=== PATIENT | female | born 1980 | race Caucasian/White ===

== ENCOUNTER 2022-08-11 16:30 | Outpatient (REF) | payer MEDICAID, SELFPAY | END 2022-08-11 16:31 | disposition home or self-care (01) | LOC: LAB 16:30 | PROVIDERS: PCP Family Medicine; Visit Provider Obstetrics & Gynecology | DX: N92.0 Excessive and frequent menstruation with regular cycle (principal) | CPT/HCPCS: 88305 ==

== ENCOUNTER 2022-08-26 14:58 | Outpatient (OUT) | payer MEDICAID, SELFPAY | END 2022-08-26 14:59 | disposition home or self-care (01) | LOC: PST 15:03 | PROVIDERS: PCP Family Medicine | DX: Z01.818 Encounter for other preprocedural examination (principal); N92.1 Excessive and frequent menstruation with irregular cycle; N93.9 Abnormal uterine and vaginal bleeding, unspecified; R10.2 Pelvic and perineal pain ==

== ENCOUNTER 2022-09-04 06:17 | Day surgery (SDC) | payer MEDICAID, SELFPAY ==
[2022-08-26 12:26] VITALS: PULSE 83; TEMP 36.4; O2SAT 97; BMI 36.4
[2022-09-04] VITALS (11 sets, daily range): BP systolic 94–127; BP diastolic 60–83; PULSE 53–74; RESP 12–21; TEMP 36.2–36.5; O2SAT 93–97; BMI 36.4
[2022-09-04 06:26] LABS: Basophils Percent Auto 0.3 % (0.2-2.0); Eosinophils Absolute Auto 0.2 10^3/uL (0.0-0.7); Eosinophils Percent Auto 2.9 % (0.9-7.0); Hematocrit 38.7 % (36.0-48.0); Hemoglobin 12.8 g/dL (12.0-16.0); Immature Granulocytes Abs Auto 0.02 10^3/uL (0.00-0.03); Immature Granulocytes Pct Auto 0.3 % (0.0-0.5); Lymphocytes Absolute Auto 1.8 10^3/uL (1.2-3.8); Lymphocytes Percent Auto 25.8 % (20.5-60.0); Mean Corpuscular HGB Conc 33.1 g/dL (29.9-35.2); Mean Corpuscular Hemoglobin 28.6 pg (26.7-34.0); Mean Corpuscular Volume 86.4 fL (81.0-99.0); Mean Platelet Volume 8.6 fL (9.5-13.5); Monocytes Absolute Auto 0.5 10^3/uL (0.3-0.8); Monocytes Percent Auto 6.7 % (1.7-12.0); Neutrophils Absolute Auto 4.5 10^3/uL (1.4-6.5); Platelet Count 254 10^3/uL (150-450); Red Blood Count 4.48 10^6/uL (4.20-5.40); Red Cell Distribution Width 12.9 % (11.0-15.0)
[2022-09-04 06:46] LABS: HCG Quantitative <1 mIU/mL
[2022-09-04] MEDS: LACTATED RINGER'S SOLUTION 1,000 ML 50 ML IV (07:02)
--- NOTE | 2022-09-04 12:48 | PM.ONB ---
Brief Operative Note Date of procedure: 09/04/22 Pre-op diagnosis: menorrhagia Post-op diagnosis: same Procedure: The patient was taken back to the OR where she was prepped and draped in the normal sterile fashion after being placed in the dorsal lithotomy position, after being placed under general anesthesia without difficulty. The anterior lip was grasped with a single tooth tenaculum. The patient was then gently sounds. The patient was gently sounded using Hegar dilators and the hysteroscope was passed through the cervix into the uterus where both ostia were seen. No gross evidence of polyps, fibroids or malignancy. A weighted speculum was placed in the patient?s vagina, the anterior tip of the cervix was identified and grasped with a single tooth tenaculum. The patient was gently sounded to roughly 10 cm. The cervical length was noted to be 5 cm. The Martina ablation apparatus was set to approximately 5 in length. This was placed in through the cervix and into the uterus. After the seal was tested, at that time the total ablation of 120 seconds was performed with the Martina without difficulty. All instruments were removed from the vagina. Anesthesia: JP Surgeon: Geraldo Chisholm Estimated blood loss (mL): 5 Pathology: none sent Condition: stable Disposition: PACU
--- NOTE | 2022-09-07 13:43 | PC.NURSE ---
Pt straight cathed per Arabella MOORE. No urine noted.
== END 2022-09-04 09:40 | disposition home or self-care (01) ==
PROVIDERS: PCP Family Medicine; Visit Provider Obstetrics & Gynecology
PROC: (CPT 00952; principal; 2022-09-04 07:30)
DX: N92.1 Excessive and frequent menstruation with irregular cycle (principal); N93.9 Abnormal uterine and vaginal bleeding, unspecified; R10.2 Pelvic and perineal pain; Z79.84 Long term (current) use of oral hypoglycemic drugs; Z98.51 Tubal ligation status
CPT/HCPCS: 00952; 58563; 36415; 84702; 85025; J2704

== ENCOUNTER 2022-12-17 19:54 | Outpatient (OUT) | payer MEDICAID, SELFPAY ==
--- NOTE | 2022-12-17 20:04 | US_ITS ---
The [address] [address] Patient Name: ODALIS MC MRN: [id number] date: 1980 Sex: F Assigned Patient Location: Current Patient Location: Accession/Order Number: [id number] Exam Date: 12/17/2022 20:10 Report Date: 12/18/2022 07:36 At the request of: LIZZ CHRISTIANSON Procedure: US pelvis w/ transvaginal EXAMINATION: US pelvis w/ transvaginal HISTORY: PELVIC PAIN IN FEMALE R10.2 COMPARISON: No relevant comparison available. FINDINGS: The uterus is normal in size, contour and myometrial echotexture measuring 8.5 x 3.6 x 4.3 cm, anteverted. No focal myometrial mass. The endometrium measures 5.3 mm, normal. The right ovary is normal measuring 1.0 x 1.4 x 1.2 cm. Normal color and Doppler flow. The left ovary measures 3.5 x 2.1 x 2.8 cm. Normal color Doppler flow. Area of anechoic echogenicity measuring 2.1 cm, a simple cyst is favored No free fluid US/US pelvis w/ transvaginal IMPRESSION: 2.1 cm left ovarian simple cyst Electronically authenticated by: LE JAIME Date: 12/18/2022 07:36
== END 2022-12-17 19:55 | disposition home or self-care (01) ==
LOC: US 19:55
PROVIDERS: PCP Family Medicine; Visit Provider Obstetrics & Gynecology
DX: R10.2 Pelvic and perineal pain (principal); N83.292 Other ovarian cyst, left side
CPT/HCPCS: 76830; 76856

== ENCOUNTER 2024-09-20 08:53 | Outpatient (OUT) | payer MEDICAID, SELFPAY ==
--- OUTSIDE RECORDS SUMMARY | 2007-11-28 14:00 | XMS_ITS | Continuity of Care Document ---
Author Organization [facility] Address [address] [place] [address] Phone Care Team Providers Care Wood Type Cutter Name Role Phone Jun Quiroz MD Unavailable Unavailable Medications Medication Instructions Dosage Effective Dates (start - stop) Status Comments Tamiflu 75 mg Cap Take one capsule by mouth every twelve hours - Active ROBITUSSIN A-C 100-10MG/5SYRUP Take two teaspoons every four hours - Active ALBUTEROL 90MCGAEROSOL 2 PUFFS Q 4 HRS PRN WHEEZING - Active Tylenol-Codeine #3 300 mg-30 mg Tab Take two tablets by mouth every four hours FOR PAIN - Active Methocarbamol 750 mg Tab 1 every 8 hrs as needed for muscle spasm - No Longer Active Vicodin 5 mg-500 mg Tab 1 before bed as needed for pain - No Longer Active Procedures Procedure Date Urgent Care Visit Advance Directives Directive Yes / No Effective Date File Name No Information Encounters Encounter Description Practice Location Reason(s) For Visit Diagnoses Date Provider Providers Copied on Encounter [facility], [address], [place], [place], [id number], [place] tel:[phone] [facility] back pain (chief complaint) SPRAIN/STRA IN LUMBAR Gabriella Barahona. [address], [place], [place], [id number], [place]. tel:[phone] Referring Provider: Aaron Merrill MD, [address], [place], [address]. tel:[phone] [facility], [address], [place], [place], [address], [place] tel:[phone] [facility] NB VIRAL INFXN,UNSPE CIFIED Benedicto Peres. [address], [place], [address], [place]. tel:[phone] Family History Family Member Type Diagnosis Age At Onset No Information Payers Payer name Insurance type Covered green party [id number] Social History Type Description Quantity Date Captured Comments Sex Female Smoking Status No Information Sexual Orientation Straight or heterosexual Vital Signs Date / Time: Height Weight BMI Pulse Rate Blood Pressure Temperature Respiratory Rate Body Surface Area Head Circumference Head Circ. Percentile Wt./Uche. Percentile BMI percentile Pulse Ox Inhaled Ox 6:14 PM 175.00 lbs 65 /min 110/82 mm[Hg] 98.30 F Chief Complaint And Reason For Visit From encounter dated '11/28/2007 18:00'. back pain (chief complaint) Reason For Referral Reason For Referral No Information History Of Present Illness Encounter Date Complaint History Of Prese nt Illness back pain Functional Status Date Functional Assessmen t No Information Instructions Date Instruction Additional Infor mation No Information Assessments Type Assessment Date No Information Patient Care Teams Name Effective Dates (start - stop) Status Members No Information
--- OUTSIDE RECORDS SUMMARY | 2024-09-20 08:55 | XMS_ITS | Clinical Summary ---
Author Organization [facility] Address [id number] [address] [place] [address] Care Team Providers Care Server Support Technician Name Role Phone Cosme Zhao MD Primary Care Provider [phone] Allergies Active Allergy Reactions Criticality Noted Date Comments Erythromycin 04/19/2019 Grass Pollen 09/06/2023 Other Reaction(s): Itching Comments: (grass clippings) Penicillins 04/19/2019 Medications ALPRAZolam (XANAX) 0.25 mg tablet Take 1 tablet (0.25 mg total) by mouth nightly as needed for anxiety. Active busPIRone (BUSPAR) 10 mg tabletIndicatio ns:generalized anxiety disorder Take 1 tablet (10 mg total) by mouth 2 (two) times a day as needed Indications: repeated episodes of anxiety. Active WELLBUTRIN XL 300 mg 24 hr tablet Take 1 tablet (300 mg total) by mouth every morning. 05/11/2024 Active Active Problems Problem Noted Date Diagnosed Date Insulin resistance 08/25/2022 Perceived hearing changes 09/20/2019 Overview (11/29/2022): replacing diagnoses that were inactivated after the 11/29 regulatory import Family History Medical History Relation Name Comments Breast cancer Neg Hx Social History Tobacco Use Types Packs/Day Years Used Date Smoking Tobacco: Never Smokeless Tobacco: Never Alcohol Use Standard Drinks/Week Comments Not Currently 0 (1 standard drink = 0.6 oz pur e alcohol) Childcare Answer Date Recorded Childcare Unknown 08/10/2018 Employment Answer Date Recorded Employment Unknown 08/10/2018 Purpose - Life Answer Date Recorded Purpose and direction in life Unknown Comments No Sex and Gender Information Value Date Recorded Sex Assigned at Not on file Legal Sex Female 12:09 PM EDT Gender Identity Not on file Sexual Orientation Not on file Last Filed Vital Signs Vital Sign Reading Time Taken Comments Blood Pressure 122/80 06/14/2024 3:18 PM EDT Pulse 79 06/14/2024 3:18 PM EDT Temperature 36.9 C (98.5 F) 09/17/2019 2:59 PM EDT Respiratory Rate 13 09/17/2019 2:59 PM EDT Oxygen Saturation 96% 06/14/2024 3:18 PM EDT Inhaled Oxygen Concentration - - Weight 92.1 kg (203 lb) 06/14/2024 3:18 PM EDT Height 162.6 cm (5' 4 ) 06/14/2024 3:18 PM EDT Body Mass Index 34.84 06/14/2024 3:18 PM EDT Plan of Treatment Health Maintenance Due Date Last Done Comments Depression Screening 1990 Adult BMI Follow Up Plan 1996 DTaP,Tdap and Td Vaccines (2 - Td or Tdap) 09/01/2023 08/31/2013 COVID-19 Vaccine ( season) 2023, 04/24/2020 Influenza Vaccine 10/30/2024 Pap Smear 04/22/2025 04/22/2022 Adult BMI Screening 06/14/2025 06/14/2024 Tobacco Screening 06/14/2025 06/14/2024 Medical Devices Not on file Insurance [employer] Care Teams Server Support Technician Relationship Specialty Start Date End Date Cosme Zhao MD PCP - General Family Medicine 11/01/18
--- OUTSIDE RECORDS SUMMARY | 2024-09-20 08:55 | XMS_ITS | Encounter Summary ---
Author Organization [facility] Address [address] [place] [address] Care Team Providers Care Coach Cleaner Name Role Phone Junior Mata MD Unavailable [phone] Ivelisse Germain Unavailable Unavailable Encounter Details Date Type Department Care Team (Late st Contact Info) Description 12/18/2022 Clinisync Result Encounter [facility] External Department Unsolicited Lizz Chisholm, DO [address] [place] [address] Social History Tobacco Use Types Packs/Day Years Used Date Smoking Tobacco: Never Smokeless Tobacco: Never Alcohol Use Standard Drinks/Week Comments Never 0 (1 standard drink = 0.6 oz pur e alcohol) Comments No Sex and Gender Information Value Date Recorded Sex Assigned at Not on file Legal Sex Female 11:49 PM EDT Gender Identity Not on file Sexual Orientation Not on file documented as of this encounter Plan of Treatment Not on file documented as of this encounter Procedures Procedure Name Priority Date/Time Associated Diagnosis Comments US PELVIS W/ TRANSVAGINAL 12/18/2022 7:36 AM EDT documented in this encounter Results * US PELVIS W/ TRANSVAGINAL (12/18/2022 7:36 AM EDT) Anatomical Region Laterality Modality Other 12/18/2022 7:36 AM EDT Narrative 12/18/2022 7:36 AM EDT The [address] [address] Ultrasound Report Signed Patient: ODALIS LAMAS MR#: [id number] : 1980 Acct:[id number] Age/Sex: 42 / F ADM Date: 12/17/22 Loc: US Attending Dr: Lizz Chisholm D.O. Ordering Physician: Lizz Chisholm D.O. Date of Service: 12/17/22 Procedure(s): US pelvis w/ transvaginal Accession Number(s): [id number] cc: Lizz Chisholm D.O.; KEERTHI STOCKTON The [place] [id number] Patient Name: ODALIS LAMAS MRN: [id number] date: 1980 Sex: F Assigned Patient Location: US Current Patient Location: Accession/Order Number: [id number] Exam Date: 12/17/2022 20:10 Report Date: 12/18/2022 07:36 At the request of: LIZZ CHISHOLM Procedure: US pelvis w/ transvaginal EXAMINATION: US pelvis w/ transvaginal HISTORY: PELVIC PAIN IN FEMALE R10.2 COMPARISON: No relevant comparison available. FINDINGS: The uterus is normal in size, contour and myometrial echotexture measuring 8.5 x 3.6 x 4.3 cm, anteverted. No focal myometrial mass. The endometrium measures 5.3 mm, normal. The right ovary is normal measuring 1.0 x 1.4 x 1.2 cm. Normal color and Doppler flow. The left ovary measures 3.5 x 2.1 x 2.8 cm. Normal color Doppler flow. Area of anechoic echogenicity measuring 2.1 cm, a simple cyst is favored No free fluid US/US pelvis w/ transvaginal IMPRESSION: 2.1 cm left ovarian simple cyst Electronically authenticated by: LE JAIME Date: 12/18/2022 07:36 Dictated By: Le Jaime M.D. Signed By: 12/18/2238 DD/ TD/TT: Vegetable Packer: Procedure Note Radiology, Radiologist, MD - 12/18/2022 [place] [address] Ultrasound Report Signed Patient: ODALIS LAMAS MMR#: [id number] : 1980Acct:[id number] Age/Sex: 42 / FADM Date: 12/17/22 Loc: US Attending Dr: Lizz Chisholm D.O. Ordering Physician: Lizz Chisholm D.O. Date of Service: 12/17/22 Procedure(s): US pelvis w/ transvaginal Accession Number(s): [id number] cc: Lizz Chisholm D.O.; KEERTHI STOCKTON [place] [address] Patient Name: ODALIS LAMAS MRN: [id number] date: 1980 Sex: F Assigned Patient Location: US Current Patient Location: Accession/Order Number: [id number] Exam Date: 12/17/2022 20:10 Report Date: 12/18/2022 07:36 At the request of: LIZZ CHISHOLM Procedure: US pelvis w/ transvaginal EXAMINATION: US pelvis w/ transvaginal HISTORY: PELVIC PAIN IN FEMALE R10.2 COMPARISON: No relevant comparison available. FINDINGS: The uterus is normal in size, contour and myometrial echotexture measuring8.5 x 3.6 x 4.3 cm, anteverted. No focal myometrial mass. The endometrium measures 5.3 mm, normal. The right ovary is normal measuring 1.0 x 1.4 x 1.2 cm. Normal color and Doppler flow. The left ovary measures 3.5 x 2.1 x 2.8 cm. Normal color Doppler flow.Area of anechoic echogenicity measuring 2.1 cm, a simple cyst is favored No free fluid US/US pelvis w/ transvaginal IMPRESSION: 2.1 cm left ovarian simple cyst Electronically authenticated by: LE JAIME Date: 12/18/2022 07:36 Dictated By: Le Jaime M.D. Signed By:12/18/2238 DD/ TD/TT: Vegetable Packer: us Lizz Chisholm DO [facility] Final Result documented in this encounter Visit Diagnoses Not on filedocumented in this encounter Care Teams Coach Cleaner Relationship Specialty Start Date End Date Junior Mata MD [address] [facility] [address] [place] [address] PCP - [facility] [place] BUSINESS OBJECTS REPORT DEVELOPER 05/31/23 08/29/23 Ivelisse Germain PCP - [facility] [place] BUSINESS OBJECTS REPORT DEVELOPER 08/30/23 documented as of this encounter
--- OUTSIDE RECORDS SUMMARY | 2024-09-20 08:55 | XMS_ITS | Clinical Summary ---
Author Organization [facility] Address [address] [place] [address] Care Team Providers Care Test Analyst Name Role Phone Ivelisse Germain Unavailable Unavailable Allergies Active Allergy Reactions Criticality Noted Date Comments Erythromycin GI intolerance 08/11/2022 Other Reaction(s): Vomiting Grass Pollen(K-O-R-T-Swt Jamse) 09/06/2023 Other Reaction(s): Itching Comments: (grass clippings) Penicillins Rash Low 08/11/2022 Other Reaction(s): Vomiting Medications ALPRAZolam (Xanax) 0.25 MG tablet Take 0.25 mg by mouth 3 (three) times a day as needed. Active busPIRone (Buspar) 10 MG tablet Take 10 mg by mouth in the morning and 10 mg before bedtime. 07/26/2023 Active cetirizine (ZyrTEC) 10 MG tablet Take 10 mg by mouth Daily Active metFORMIN XR (Glucophage-XR) 500 MG 24 hr tabletIndicatio ns:Insulin resistance Take 1 tablet (500 mg) by mouth in the evening. Take with meals Do not crush, chew, or split. 30 tablet 11 08/09/2023 Active phentermine (Adipex-P) 37.5 MG tabletIndicatio ns:Encounter for weight management,Insu terell resistance Take 1 tablet (37.5 mg) by mouth in the morning. Take before meals. 30 tablet 08/09/2023 Active phentermine (Adipex-P) 37.5 MG tabletIndicatio ns:Encounter for weight management Take 1 tablet (37.5 mg) by mouth in the morning. Take before meals. 30 tablet 09/06/2023 Active escitalopram (Lexapro) 5 MG tablet Take 5 mg by mouth in the morning. 09/17/2023 Active phentermine (Adipex-P) 37.5 MG tabletIndicatio ns:Encounter for weight management Take 1 tablet (37.5 mg) by mouth in the morning. Take before meals. 90 tablet 10/13/2023 Active Active Problems Problem Noted Date Diagnosed Date Insulin resistance 08/25/2022 Menorrhagia with regular cycle 08/25/2022 Menstrual cycle problem 08/25/2022 Unable to lose weight 08/25/2022 Subjective hearing change 09/20/2019 Social History Tobacco Use Types Packs/Day Years [...] Sign Reading Time Taken Comments Blood Pressure 112/78 10/13/2023 10:06 AM EDT Pulse - - Temperature - - Respiratory Rate - - Oxygen Saturation - - Inhaled Oxygen Concentration - - Weight 93.9 kg (207 lb) 10/13/2023 10:06 AM EDT Height 162.6 cm (5' 4 ) 10/13/2023 10:06 AM EDT Body Mass Index 35.53 10/13/2023 10:06 AM EDT Plan of Treatment Health Maintenance Due Date Last Done Comments CT Colonography 1980 Colonoscopy 1980 Colorectal Cancer Screening 1980 FIT-DNA 1980 FIT 1980 FOBT 1980 Sigmoidoscopy 1980 Mammogram 06/11/2023 06/10/2022, 05/21/2020 Influenza Vaccine (#1) 2024 Cervical Cancer Screening 04/22/2027 HPV/Cotest 04/22/2027 Pap Smear 04/22/2027 04/22/2022 Procedures Procedure Name Priority Date/Time Associated Diagnosis Comments BI MAMMOGRAM SCREENING TOMOSYNTHESIS BILATERAL Routine 06/10/2022 Encounter for other screening for malignant neoplasm of breast Metabolic syndrome Encounter for gynecological examination (general) (routine) without abnormal findings PAP SMEAR Routine 04/22/2022 12:00 AM EST from Last 3 Months or Most Recently Relevant to Health Maintenance Results * Bilateral screening mammogram with tomosynthesis (06/10/2022) Anatomical Region Laterality Modality Breast Bilateral Mammography Narrative 06/10/2022 12:00 AM EDT PERFORMED AT [facility] LOCATION:[address] Patient: ADAMS Wing Exam Date: 06/10/2022 : 1980 Gender:F Ordering : DR LIZZ CHISHOLM . Admission #: [id number] Family : ANITHA SINGH . Order #: [id number] CLICK HERE TO VIEW EXAM RADIOLOGY REPORT PROCEDURE: MAMMOGRAM SCREENING 3D BILATERAL CAD COMPARISON: MG MAMM SCREEN 3D WILFRIDO CAD 05/21/2020. INDICATIONS: Screening mammography Calculator Name NCI Breast Cancer Risk Assessment Tool 5 Year Breast Cancer Risk 0.90% Lifetime Breast Cancer Risk 11.80% Personal Breast Cancer No Personal Ovarian Cancer No Treatments None Family Cancers None LOCATION: [facility] BREAST COMPOSITION: Scattered areas fibroglandular density. FINDINGS: DIAGNOSTIC CATEGORY 2--BENIGN FINDING: RIGHT BREAST: No significant suspicious finding. Scattered benign-appearing lymph nodes are present. No significant change has occurred. LEFT BREAST: No significant suspicious finding. No significant change has occurred. RECOMMENDATIONS: ROUTINE MAMMOGRAM AND CLINICAL EVALUATION IN 12 MONTHS. PLEASE NOTE: A NORMAL MAMMOGRAM DOES NOT EXCLUDE THE POSSIBILITY OF BREAST CANCER. A CLINICALLY SUSPICIOUS PALPABLE LUMP SHOULD BE BIOPSIED. Dictated by: Mike Lino M.D. on 06/10/2022 at 14:09 Approved by: Mike Lino M.D. on 06/10/2022 at 14:14 Procedure Note CONVERSION, GENERIC - 09/04/2022 PERFORMED AT [facility] LOCATION:[address] Patient: ADAMS Wing Exam Date: 06/10/2022 : 1980 Gender:F Ordering : DR LIZZ CHISHOLM . Admission #: [id number] Family : ANITHA SINGH . Order #: [id number] CLICK HERE TO VIEW EXAM RADIOLOGY REPORT PROCEDURE: MAMMOGRAM SCREENING 3D BILATERAL CAD COMPARISON: MG MAMM SCREEN 3D WILFRIDO CAD 05/21/2020. INDICATIONS: Screening mammography Calculator Name NCI Breast Cancer Risk Assessment Tool 5 Year Breast Cancer Risk 0.90% Lifetime Breast Cancer Risk 11.80% Personal Breast Cancer No Personal Ovarian Cancer No Treatments None Family Cancers None LOCATION: [facility] BREAST COMPOSITION: Scattered areas fibroglandular density. FINDINGS: DIAGNOSTIC CATEGORY 2--BENIGN FINDING: RIGHT BREAST: No significant suspicious finding. Scatteredbenign-appearing lymph nodes are present. No significant change has occurred. LEFT BREAST: No significant suspicious finding. No significant changehas occurred. RECOMMENDATIONS: ROUTINE MAMMOGRAM AND CLINICAL EVALUATION IN 12 MONTHS. PLEASE NOTE: A NORMAL MAMMOGRAM DOES NOT EXCLUDE THE POSSIBILITY OFBREAST CANCER. A CLINICALLY SUSPICIOUS PALPABLE LUMP SHOULD BE BIOPSIED. Dictated by: Mike Lino M.D. on 06/10/2022 at 14:09 Approved by: Mike Lino M.D. on 06/10/2022 at 14:14 Lizz Chisholm DO IMG BI PROCEDURES Final Result * Pap Smear (04/22/2022 12:00 AM EST) Swab Cervical swab / Unknown [facility] Provider LAB CYTOLOGY ORDERABLES F inal Result EXTERNAL LAB from Last 3 Months or Most Recently Relevant to Health Maintenance Insurance [facility] MEDICAID [place] Care Teams Test Analyst Relationship Specialty Start Date End Date Ivelisse Germain PCP - [facility] METAL ROOFER 08/30/23
--- OUTSIDE RECORDS SUMMARY | 2024-09-20 08:55 | XMS_ITS | Encounter Summary ---
Author Organization [facility] Address [address] [place] [address] Care Team Providers Care Clinical Nursing Assistant Name Role Phone Junior Mata MD Unavailable [phone] Ivelisse Germain Unavailable Unavailable Encounter Details Date Type Department Care Team (Late st Contact Info) Description 09/17/2022 Abstract [facility] [address] [place] [address] Slime Mcmahon PA [address] [place], [place] [id number] Social History Tobacco Use Types Packs/Day Years [...] on file documented as of this encounter Visit Diagnoses Not on filedocumented in this encounter Care Teams Clinical Nursing Assistant Relationship Specialty Start Date End Date Junior Mata MD [address] [place], [place] [id number] PCP - [facility] [place] INVESTMENT CONSULTANT 05/31/23 08/29/23 Ivelisse Germain PCP - [facility] [place] INVESTMENT CONSULTANT 08/30/23 documented as of this encounter
--- OUTSIDE RECORDS SUMMARY | 2024-09-20 08:55 | XMS_ITS | Encounter Summary ---
Author Organization [facility] Address [address] [place] [address] Care Team Providers Care Quality Control Checker Name Role Phone Junior Mata MD Unavailable [phone] Ivelisse Germain Unavailable Unavailable Encounter Details Date Type Department Care Team (Late st Contact Info) Description 09/10/2022 Abstract [facility] OB [address] [place] [address] Geraldo Chisholm [address] [place], [place] [id number] Social History Tobacco Use Types Packs/Day Years [...] on filedocumented in this encounter Care Teams Quality Control Checker Relationship Specialty Start Date End Date Junior Mata MD [address] [facility] [address] [place], [place] [id number] PCP - [facility] [place] ORANGE PICKING SUPERVISOR 05/31/23 08/29/23 Ivelisse Germain PCP - [facility] [place] ORANGE PICKING SUPERVISOR 08/30/23 documented as of this encounter
--- NOTE | 2024-09-20 09:01 | MM_ITS ---
Patient Name: ODALIS MC MR#: [id number] : 1980 Exam Date: 09/20/2024 Ordering Doctor: KASEY STEVENSON . RADIOLOGY REPORT PROCEDURE: MM TOMOSYNTHESIS SCREENING BI COMPARISON: MG MAMM SCREEN 3D WILFRIDO CAD, 06/10/2022. MG MAMM SCREEN 3D [place]ILFR[place]O CAD, 05/21/2020. INDICATIONS: Screening Calculator Name NCI Breast Cancer Risk Assessment Tool 5 Year Breast Cancer Risk 1.00% Lifetime Breast Cancer Risk 11.60% Personal Breast Cancer No Personal Ovarian Cancer No Treatments None Family Cancers None LOCATION: [facility] BREAST COMPOSITION: There are scattered areas of fibroglandular density. FINDINGS: RIGHT BREAST: No significant suspicious finding. LEFT BREAST: No significant suspicious finding. DIAGNOSTIC CATEGORY 1--NEGATIVE. RECOMMENDATIONS: ROUTINE MAMMOGRAM AND CLINICAL EVALUATION IN 12 MONTHS. PLEASE NOTE: A NORMAL MAMMOGRAM DOES NOT EXCLUDE THE POSSIBILITY OF BREAST CANCER. A CLINICALLY SUSPICIOUS PALPABLE LUMP SHOULD BE BIOPSIED. Dictated by: Lex Oreilly MD on 09/20/2024 at 12:57 Approved by: Lex Oreilly MD on 09/20/2024 at 13:12
--- OUTSIDE RECORDS SUMMARY | 2024-09-20 09:15 | XMS_ITS | CCD ---
Author Organization [facility] Care Team Providers Care Monitoring Specialist Name Role Phone SAMMY ., DR ZAMUDIO Consulting Unavailable SAMMY ., DR ZAMUDIO Admitting Unavailable SAMMY ., DR ZAMUDIO Attending Unavailable ZIEBER, DR MIKE Woodruff Consulting Unavailable SAMMY ., DR ZAMUDIO Consulting Unavailable SAMMY ., DR ZAMUDIO Admitting Unavailable SAMMY ., DR ZAMUDIO Attending Unavailable FRANCISCO ., SLIME Attending Unavailable FRANCISCO ., SLIME Consulting Unavailable FRANCISCO ., SLIME Admitting Unavailable SAMMY ., DR ZAMUDIO Consulting Unavailable SAMMY ., DR ZAMUDIO Admitting Unavailable SAMMY ., DR ZAMUDIO Attending Unavailable ZIEBER, DR MIKE Woodruff Consulting Unavailable REQUEST, DR TINOCO LISTED Consulting Unavaila ble DAPHNIE THOMAS Referring Unavailable KEERTHI ZHAO Primary Care Unavailable LIZZ CHRISTIANSON Attending Unavailable SAMMY, LIZZ Attending Unavailable FRANCISCO, SLIME Attending Unavailable Pavel GUARDADO, Keerthi Woodruff Primary Care Provider Keerthi Zhao MD Primary Care Provider Kiara Zhao MD, Keerthi Woodruff Primary Care Provider DAPHNIE THOMAS Attending Unavailable KEERTHI ZHAO Referring Unavailable KEERTHI ZHAO Primary Care Unavailable DAPHNIE THOMAS Attending Unavailable KEERTHI ZHAO Referring Unavailable KEERTHI ZHAO Primary Care Unavailable Rosemary, RESTORATION TECHNICIAN Angle L Attending Unavailable Rosemary, RESTORATION TECHNICIAN Angle L Attending Unavailable Rosemary, RESTORATION TECHNICIAN Angle L Attending Unavailable Rosemary, RESTORATION TECHNICIAN Angle L Attending Unavailable Allergies Allergy Classification Reported Allergen(s) Allergy Type Date of Onset Reaction(s) Facility (1 source) Erythromycin Drug Allergy 4 [facility] Repository (3 sources) Penicillins; Translations: [PENICILLINS] Drug allergy (disorder) 4 [facility] Repository (14 sources) Erythromycin; Translations: [[facility]THROMYCIN] [facility] Penicillins Propensity to adverse reactions to drug 0 [facility] [employer] [facility] (6 sources) Grass pollen; Translations: [GRASS POLLEN] Propensity to adverse reactions to drug 4 [facility] (3 sources) Penicillins Propensity to adverse reactions to drug 0 [facility] [employer] [facility] (1 source) Penicillin G Benzathine; Translations: [penicillin G benzathine] Propensity to adverse reactions (disorder) [facility] Repository Medications Current Medications Medication Drug Class(es) Dates Sig (Normalized) Sig (Original) ALPRAZolam 0.25 mg oral tablet (11 sources) Benzodiazepine take 1 tablet by mouth once daily as needed for anxiety ALPRAZolam (XANAX) 0.25 mg tablet Take 1 tablet (0.25 mg total) by mouth nightly as needed for anxiety. Active 24 hr buPROPion hydrochloride 300 mg extended release oral tablet (2 sources) Aminoketone Start: 05-11-2024 take 1 tablet by mouth once daily in the morning WELLBUTRIN XL 300 mg 24 hr tablet Take 1 tablet (300 mg total) by mouth every morning. 05/11/2024 Active busPIRone hydrochloride 10 mg oral tablet (8 sources) take 1 tablet by mouth twice daily as needed for anxiety busPIRone (BUSPAR) 10 mg tablet Indications: generalized anxiety disorder Take 1 tablet (10 mg total) by mouth 2 (two) times a day as needed Indications: repeated episodes of anxiety. Active End: 03-18-2023 take 1 tablet by mouth twice daily busPIRone (BUSPAR) 5 mg tablet Take 5 mg by mouth 2 (two) times a day. 0 03/18/2023 Discontinued (Discontinued by another clinician) Completed/Discontinued Medications Medication Drug Class(es) Dates Sig (Normalized) Sig (Original) escitalopram 5 mg oral tablet (4 sources) Serotonin Reuptake Inhibitor Start: 09-17-2023 End: 06-14-2024 escitalopram (LEXAPRO) 5 mg tablet Take 1 tablet (5 mg total) by mouth. 09/17/2023 06/14/2024 Discontinued 24 hr metFORMIN hydrochloride 500 mg extended release oral tablet (4 sources) Biguanide Start: 08-09-2023 End: 06-14-2024 take 1 tablet by mouth every twenty-four hours metFORMIN XR (GLUCOPHAGE XR) 500 mg 24 hr tablet Take 1 tablet (500 mg total) by mouth. 08/09/2023 06/14/2024 Discontinued sertraline 100 mg oral tablet (1 source) Serotonin Reuptake Inhibitor End: 03-18-2023 take 1 tablet by mouth once daily sertraline (ZOLOFT) 100 mg tablet Take 100 mg by mouth daily. 0 03/18/2023 Discontinued (Discontinued by another clinician) tiZANidine 4 mg oral tablet (10 sources) Central alpha-2 Adrenergic Agonist Start: 02-26-2023 End: 06-14-2024 tiZANidine (ZANAFLEX) 4 mg tablet Take 1 tablet (4 mg total) by mouth. 02/26/2023 06/14/2024 Discontinued Problems Problem Classification Problem Date Documented Da te Episodic/Chronic Administrative/social admission (2 sources) Patient encounter status; Translations: [Other specified counseling] 12-15-2023 Episodic Anxiety disorders (1 source) Anxiety; Translations: [Anxiety disorder, unspecified] 03-17-2023 Chronic Menstrual disorders (5 sources) Excessive and frequent menstruation with regular cycle; Translations: [EXCESS FREQ MENSTRUATION W/REG CYCL] Onset: 06-12-2022 Chronic Other ear and sense organ disorders (11 sources) Perception of hearing loss; Translations: [Unspecified hearing loss, unspecified ear] Onset: 09-20-2019 11-29-2022 Chronic Other nutritional; endocrine; and metabolic disorders (2 sources) Body mass index 30+ - obesity; Translations: [Obesity, unspecified] 12-15-2023 Chronic Other nutritional; endocrine; and metabolic disorders (5 sources) Insulin resistance; Translations: [Insulin resistance] Onset: 08-25-2022 12-15-2023 Chronic Other screening for suspected conditions (not mental disorders or infectious disease) (8 sources) Encounter for screening mammogram for malignant neoplasm of breast; Translations: [Encounter for screening for malignant neoplasm of cervix] Onset: 04-22-2022 Episodic Ovarian cyst (2 sources) Unspecified ovarian cyst, left side; Translations: [Unspecified ovarian cyst, right side] Onset: 06-24-2022 Episodic Residual codes; unclassified (1 source) Obstructive sleep apnea (adult) (pediatric); Translations: [Obstructive sleep apnea (adult) (pediatric)] Onset: 07-20-2023 Chronic Residual codes; unclassified (6 sources) Obstructive sleep apnea syndrome; Translations: [Obstructive sleep apnea (adult) (pediatric)] 06-28-2023 Chronic Residual codes; unclassified (1 source) Hypersomnia; Translations: [Hypersomnia, unspecified] 07-22-2023 Chronic Residual codes; unclassified (2 sources) Unable to comply with treatment; Translations: [Noncompliance with CPAP treatment] 12-15-2023 Episodic Results Test Name Value Interpretation Reference Range Facility Ambulatory Visit Summaryon 0 06-28-2024 Ambulatory Visit Summary Ambulatory Visi t Summary ODALIS LAMAS :1980 Visit Date:06/28/2024 Ambulatory Visit Instructions Your Diagnosis Generalized anxiety disorder Moderate recurrent major depression BMI 34.0-34.9,adult Obesity (BMI 30-39.9) Nonsmoker Your Care Team Attending Physician - Angle Tavarez Primary Care Physician - Angle Tavarez This Is Your Medications List alprazolam (alprazolam 0.5 mg Tab) buPROPion (Wellbutrin XL 300 mg/24 hours Tab-ER) busPIRone (busPIRone 15 mg Tab) phentermine (phentermine 37.5 mg oral capsule) Procedures Performed section (11/14/2013), Mammoplasty (09/22/2007), Breast reduction. Discharge Vitals Temperature (Tympanic) 36.8 ???C Heart Rate (Peripheral) 76 Respiratory Rate 18 Blood Pressure 130/82 Height 163 cm Height 64 in Weight 92.65 kg Weight 204.258 lb BMI 34.87 What to do next Scheduled Follow-Up Appointments Wednesday 2:20 PM EDT With: Angle Tavarez Where: [address] [address]- Medications What How Much When Instructions Unchanged alprazolam (alprazolam 0.5 mg Tab) See instructions TAKE 1 TABLET BY MOUTH EVERY DAY FOR 30 DAYS Unchanged buPROPion (Wellbutrin XL 300 mg/ 24 hours Tab-ER) 1 Tablets By Mouth Every day Unchanged busPIRone (busPIRone 15 mg Tab) See instructions TAKE 1 TABLET BY MOUTH UPON AWAKENING AND AT 5-6 Unchanged phentermine (phentermine 37.5 mg oral capsule) By Mouth Allergies erythromycin (Vomiting) penicillin G benzathine Problems Ongoing - Any problem that you are currently receiving treatment for. BMI 34.0-34.9,adult Generalized anxiety disorder Moderate recurrent major depression Nonsmoker Obesity (BMI 30-39.9) Patient Survey You may receive a survey via text or e-mail asking about your office visit. Please share your experience with us by completing your survey. We appreciate your feedback and thank you for choosing us for your care. Normal Espinoza [facility] Family Medicine Office/Clini c Noteon 06-28-2024 Family Medicine Office/Clinic Note Family Medicine Office/Clinic Note Chief Complaint 6wk follow up HPI Staff Odalis is a 43 year old female presenting for 6 week follow up ELLEN: 05/11/24 FRANCE 7 PHQ-9: 9 increased Wellbutrin to 300mg Follow up for Mental Status: Medication adherence- Yes, takes medication as prescribed Medication refill needed: _ Suicidal thoughts-Not at this time Most recent FRANCE: 6 Most recent PHQ: 6 Did stop taking Adipex-P due to sleeping issues. History of Present Illness pt presents today for follow up on anxiety/depression. Wellbutrin was increased to 300mg at last visit Review of Systems PHQ Score Initial Depression Screen Score: 0 SCORE Physical Exam Vitals & Measurements T: 36.8 ???C(Tympanic) HR: 76(Peripheral) RR: 18 BP: 130/82 SpO2: 97% HT: 163 cm HT: 64 in WT: 92.65 kg WT: 204.258 lb BMI: 34.87 General: alert, no acute distress ENMT: oral mucosa moist, no pharyngeal erythema or exudate Cardiovascular: regular rate and rhythm, normal peripheral perfusion Respiratory: Lungs CTA, respirations non labored Extremities: no deformity, no trauma Neurological: oriented x 4, LOC appropriate for age, CN II-XII intact, motor strength equal & normal bilaterally, speech normal Assessment/Plan 1. Generalized anxiety disorder (F41.1: Generalized anxiety disorder) pt presents today for follow up on anxiety/depression increased Wellbutrin at last visit. FRANCE is 6. pt is feeling much better. does not need refill at this time. Ordered: Body Mass Index (BMI) documented 3008F Current tobacco non-user 1036F Depression Screening Negative 3352F Discharge medications reconciled with current medications in outpatient record 1111F Influenza immunization status assessed 1030F Medication list documented in medical record 1159F Most recent diastolic blood pressure 80-89 mm Hg 3079F Patient screen for fall risk: no falls in last year or 1 fall with no injury in last year 1101F Review of all meds by a prescribing practitioner or clinical pharmacist documented in EHR 1160F Systolic BP 130-139 mm Hg (Most Recent) 3075F 2. Moderate recurrent major depression (F33.1: Major depressive disorder, recurrent, moderate) PQH9 is 6 today. 3. BMI 34.0-34.9,adult (Z68.34: Body mass index [BMI] 34.0-34.9, adult) BMI education given. stopped adipex. she was having trouble sleeping. 4. Obesity (BMI 30-39.9) (E66.9: Obesity, unspecified) see above 5. Nonsmoker (Z78.9: Other specified health status) continue not smoking Follow-up No qualifying data available Problem List/Past Medical History Ongoing BMI 34.0-34.9,adult Generalized anxiety disorder Moderate recurrent major depression Nonsmoker Obesity (BMI 30-39.9) Historical No qualifying data Procedure/Surgical History section (11/14/2013), Mammoplasty (09/22/2007), Breast reduction. Medications alprazolam 0.5 mg Tab, See Instructions busPIRone 15 mg Tab, See Instructions, 1 refills phentermine 37.5 mg oral capsule, Oral, Not taking: Has not been taking due to difficulty sleeping Wellbutrin XL 300 mg/24 hours Tab-ER, 300 mg= 1 tab(s), Oral, Daily Allergies erythromycin (Vomiting) penicillin G benzathine Social History Alcohol Never., 04/12/2024 Substance Abuse Never., 04/12/2024 Tobacco Never (less than 100 in lifetime) Tobacco Use:. Never Smokeless Tobacco Use:. Household tobacco concerns: No. Yes, 06/28/2024 Family History Family history is negative Normal [facility] Comment on above: Result Comment: Elec tronically Signed By: Rosemary RESTORATION TECHNICIAN, Angle L\.br\Date and Time Signed: 06/28/24 15:22 EDT Ambulatory Visit Summaryon 0 05-11-2024 Ambulatory Visit Summary Ambulatory Visi t Summary ODALIS LAMAS :1980 Visit Date:05/11/2024 Ambulatory Visit Instructions Your Diagnosis BMI 34.0-34.9,adult Nonsmoker Your Care Team Attending Physician - Angle Tavarez Primary Care Physician - Angle Tavarez This Is Your Medications List alprazolam (alprazolam 0.5 mg Tab) buPROPion (Wellbutrin XL 300 mg/24 hours Tab-ER) busPIRone (busPIRone 15 mg Tab) phentermine (phentermine 37.5 mg oral capsule) Procedures Performed section (11/14/2013), Mammoplasty (09/22/2007), Breast reduction. Discharge Vitals Heart Rate (Peripheral) 78 Respiratory Rate 18 Blood Pressure 126/80 Height 163.0 cm Height 64 in Weight 92.3 kg Weight 203.486 lb BMI 34.74 What to do next Scheduled Follow-Up Appointments Wednesday 3:00 PM EDT With: Angle Tavarez Where: [address] [address]- Medications What How Much When Instructions New buPROPion (Wellbutrin XL 300 mg/ 24 hours Tab-ER) 1 Tablets By Mouth Every day Pickup at [facility]/pharmacy #[id number] Unchanged alprazolam (alprazolam 0.5 mg Tab) See instructions TAKE 1 TABLET BY MOUTH EVERY DAY FOR 30 DAYS Unchanged busPIRone (busPIRone 15 mg Tab) By Mouth Unchanged phentermine (phentermine 37.5 mg oral capsule) By Mouth Pharmacy Information [facility]/pharmacy #[id number]: [address], [place] [id number] [phone] Allergies erythromycin (Vomiting) penicillin G benzathine Problems Ongoing - Any problem that you are currently receiving treatment for. BMI 34.0-34.9,adult Generalized anxiety disorder Moderate recurrent major depression Nonsmoker Obesity (BMI 30-39.9) Patient Survey You may receive a survey via text or e-mail asking about your office visit. Please share your experience with us by completing your survey. We appreciate your feedback and thank you for choosing us for your care. [facility] Ambulatory Visit Summary Ambulatory Visi t Summary ODALIS LAMAS :1980 Visit Date:05/11/2024 Ambulatory Visit Instructions Your Diagnosis BMI 34.0-34.9,adult Nonsmoker Your Care Team Attending Physician - Angle Tavarez Primary Care Physician - Angle Tavarez This Is Your Medications List alprazolam (alprazolam 0.5 mg Tab) buPROPion (Wellbutrin XL 150 mg/24 hours Tab-ER) busPIRone (busPIRone 15 mg Tab) phentermine (phentermine 37.5 mg oral capsule) Procedures Performed section (11/14/2013), Mammoplasty (09/22/2007), Breast reduction. Discharge Vitals Heart Rate (Peripheral) 78 Respiratory Rate 18 Blood Pressure 126/80 Height 163.0 cm Height 64 in Weight 92.3 kg Weight 203.486 lb BMI 34.74 What to do next Scheduled Follow-Up Appointments Wednesday 3:00 PM EDT With: Angle Tavarez Where: [facility] [address] [address]- Medications What How Much When Why Instructions Unchanged alprazolam (alprazolam 0.5 mg Tab) See instructions TAKE 1 TABLET BY MOUTH EVERY DAY FOR 30 DAYS Unchanged buPROPion (Wellbutrin XL 150 mg/ 24 hours Tab-ER) 1 Tablets By Mouth Every 24 hours BMI 34.0-34.9,adult Obesity (BMI 30-39.9) Nonsmoker Unchanged busPIRone (busPIRone 15 mg Tab) By Mouth Unchanged phentermine (phentermine 37.5 mg oral capsule) By Mouth Allergies erythromycin (Vomiting) penicillin G benzathine Problems Ongoing - Any problem that you are currently receiving treatment for. BMI 34.0-34.9,adult Generalized anxiety disorder Moderate recurrent major depression Nonsmoker Obesity (BMI 30-39.9) Patient Survey You may receive a survey via text or e-mail asking about your office visit. Please share your experience with us by completing your survey. We appreciate your feedback and thank you for choosing us for your care. Max Espinoza [facility] Family Medicine Office/Clini c Noteon 05-11-2024 Family Medicine Office/Clinic Note Family Medicine Office/Clinic Note HPI Staff Odalis is a 43 year old female presenting for 1 month follow up ELLEN 04/12/24 D/c Lexapro and started Wellbutrin, ADHD was discussed may consider Vyvanse this visit Follow up for Mental Status: Medication adherence- Yes, takes medication as prescribed Medication refill needed: _ Suicidal thoughts-Not at this time Most recent FRANCE: 7 Most recent PHQ: 9 Pt states last week her grandma was put on hospice and her is next week , Pt unsure if she honestly feels any different with what has been going on History of Present Illness pt presents today for follow up on anxiety and depression Review of Systems PHQ Score Initial Depression Screen Score: 3 SCORE Detailed Depression Screen Score: 9 Total Depression Screen Score: 12 Physical Exam Vitals & Measurements HR: 78(Peripheral) RR: 18 BP: 126/80 SpO2: 99% HT: 64 in HT: 163.0 cm WT: 92.3 kg WT: 203.486 lb BMI: 34.74 General: alert, no acute distress ENMT: oral mucosa moist, no pharyngeal erythema or exudate Cardiovascular: regular rate and rhythm, normal peripheral perfusion Respiratory: Lungs CTA, respirations non labored Extremities: no deformity, no trauma Neurological: oriented x 4, LOC appropriate for age, CN II-XII intact, motor strength equal & normal bilaterally, speech normal Assessment/Plan 1. Generalized anxiety disorder (F41.1: Generalized anxiety disorder) pt is not sure if she has improved. she recently lost her grandmother. will increase dose to 300mg. will send refill for buspar as well. RTC 6 weeks 2. BMI 34.0-34.9,adult (Z68.34: Body mass index [BMI] 34.0-34.9, adult) BMI education Ordered: buPROPion, 150 mg = 1 tab(s), Oral, q24hr, # 90 tab(s), Refills(s) 0, Pharmacy: [facility]/pharmacy #[id number], 163, cm, 04/12/24 16:07:00 EST, Height/Length Dosing, 92.5, kg, 04/12/24 16:07:00 EST, Weight Dosing 3. Nonsmoker (Z78.9: Other specified health status) continue not smoking Ordered: buPROPion, 150 mg = 1 tab(s), Oral, q24hr, # 90 tab(s), Refills(s) 0, [id number] 163, cm, 04/12/24 16:07:00 EST, Height/Length Dosing, 92.5, kg, 04/12/24 16:07:00 EST, Weight Dosing Orders: buPROPion, 300 mg = 1 tab(s), Oral, Daily, # 90 tab(s), Refills(s) 0, [id number], 163, cm, 05/11/24 15:14:00 EDT, Height/Length Dosing, 92.3, kg, 05/11/24 15:14:00 EDT, Weight Dosing busPIRone, See Instructions, TAKE 1 TABLET BY MOUTH UPON AWAKENING AND AT 5-6, # 60 tab(s), Refills(s) 1, [id number] 163, cm, 05/11/24 15:14:00 EDT, Height/Length Dosing, 92.3, kg, 05/11/24 15:14:00 EDT, Weight Dosing Follow-up No qualifying data available Problem List/Past Medical History Ongoing BMI 34.0-34.9,adult Generalized anxiety disorder Moderate recurrent major depression Nonsmoker Obesity (BMI 30-39.9) Historical No qualifying data Procedure/Surgical History section (11/14/2013), Mammoplasty (09/22/2007), Breast reduction. Medications alprazolam 0.5 mg Tab, See Instructions busPIRone 15 mg Tab, See Instructions, 1 refills busPIRone 15 mg Tab, Oral phentermine 37.5 mg oral capsule, Oral, Still taking, not as prescribed: taking half tablet daily Wellbutrin XL 300 mg/24 hours Tab-ER, 300 mg= 1 tab(s), Oral, Daily Allergies erythromycin (Vomiting) penicillin G benzathine Social History Alcohol Never., 04/12/2024 Substance Abuse Never., 04/12/2024 Tobacco Never (less than 100 in lifetime) Tobacco Use:. Never Smokeless Tobacco Use:. Household tobacco concerns: No. Yes, 04/12/2024 Family History Family history is negative Normal [facility] Comment on above: Result Comment: Yady alexanderally Signed By: Angle Tavarez.anabel\Date and Time Signed: 05/11/24 15:44 EDT Family Medicine Office/Clini c Noteon 04-12-2024 Family Medicine Office/Clinic Note Family Medicine Office/Clinic Note Chief Complaint Establish Care HPI Staff Odalis is a 43 year old female presenting to [facility] Establish Care: History: Any previous diagnosis: Anxiety/Depression History of seeing any specialist: behavior health When was your last doctors visit: Last provider: Dr Zhao Any recent labs: 2023 Health Maintenance UTD: Colonoscopy: Mammogram: overdue Pelvic/Pap: 2022 Acute: Current issues/complaints: Has been taking Adipex-P since this past summer. Has lost 20lbs. Does not take daily. Does have a script for Xanax. History of Present Illness pt presents today to [facility] Review of Systems PHQ Score Initial Depression Screen Score: 2 SCORE Physical Exam Vitals & Measurements T: 36.6 ???C(Tympanic) HR: 74(Peripheral) RR: 16 BP: 128/82 SpO2: 99% HT: 64 in HT: 163 cm WT: 92.5 kg WT: 203.927 lb BMI: 34.82 General: alert, no acute distress ENMT: oral mucosa moist, no pharyngeal erythema or exudate Cardiovascular: regular rate and rhythm, normal peripheral perfusion Respiratory: Lungs CTA, respirations non labored Extremities: no deformity, no trauma Neurological: oriented x 4, LOC appropriate for age, CN II-XII intact, motor strength equal & normal bilaterally, speech normal Assessment/Plan 1. Generalized anxiety disorder (F41.1: Generalized anxiety disorder) pt will continue buspar and use xanax as needed for panic attacks 2. Moderate recurrent major depression (F33.1: Major depressive disorder, recurrent, moderate) will stop lexapro and start wellbutrin. discussed ADHD as well. may consider vyvanse at next visit. 3. BMI 34.0-34.9,adult (Z68.34: Body mass index [BMI] 34.0-34.9, adult) BMI education given Ordered: buPROPion, 150 mg = 1 tab(s), Oral, q24hr, # 90 tab(s), Refills(s) 0, [id number] 163, cm, 04/12/24 16:07:00 EST, Height/Length Dosing, 92.5, kg, 04/12/24 16:07:00 EST, Weight Dosing 4. Obesity (BMI 30-39.9) (E66.9: Obesity, unspecified) see above Ordered: buPROPion, 150 mg = 1 tab(s), Oral, q24hr, # 90 tab(s), Refills(s) 0, [id number], 163, cm, 04/12/24 16:07:00 EST, Height/Length Dosing, 92.5, kg, 04/12/24 16:07:00 EST, Weight Dosing 5. Nonsmoker (Z78.9: Other specified health status) continue not smoking Ordered: buPROPion, 150 mg = 1 tab(s), Oral, q24hr, # 90 tab(s), Refills(s) 0, [id number], 163, cm, 04/12/24 16:07:00 EST, Height/Length Dosing, 92.5, kg, 04/12/24 16:07:00 EST, Weight Dosing Orders: alprazolam, See Instructions, TAKE 1 TABLET BY MOUTH EVERY DAY FOR 30 DAYS, # 30 tab(s), Refills(s) 0, [id number], 163, cm, 04/12/24 16:07:00 EST, Height/Length Dosing, 92.5, kg, 04/12/24 16:07:00 EST, Weight Dosing Follow-up No qualifying data available Problem List/Past Medical History Ongoing BMI 34.0-34.9,adult Generalized anxiety disorder Moderate recurrent major depression Nonsmoker Obesity (BMI 30-39.9) Historical No qualifying data Procedure/Surgical History section (11/14/2013), Mammoplasty (09/22/2007), Breast reduction. Medications alprazolam 0.5 mg Tab, See Instructions busPIRone 15 mg Tab, Oral phentermine 37.5 mg oral capsule, Oral Wellbutrin XL 150 mg/24 hours Tab-ER, 150 mg= 1 tab(s), Oral, q24hr Allergies erythromycin (Vomiting) penicillin G benzathine Social History Alcohol Never., 04/12/2024 Substance Abuse Never., 04/12/2024 Tobacco Never (less than 100 in lifetime) Tobacco Use:. Never Smokeless Tobacco Use:. Household tobacco concerns: No. Yes, 04/12/2024 Family History Family history is negative Normal [facility] Comment on above: Result Comment: Elec tronically Signed By: Angle Tavarez\.anabel\Date and Time Signed: 04/12/24 16:36 EST US PELVIS AND TRANSVAGon US PELVIS AND TRANSVAG EXAMINATION: US PELVIS AND TRANSVAG HISTORY: Prolonged, heavy periods COMPARISON: No relevant comparison available. TECHNIQUE: Transabdominal and transvaginal sonographic examination. FINDINGS: UTERUS: Normal size and appearance. Uterus size: 9.2 x 4.7 x 4.9 cm ENDOMETRIUM: Normal homogeneous appearance. Endometrial thickness: 8 mm RIGHT OVARY: Contains a benign-appearing cyst. Duplex Doppler demonstrates normal waveform and flow; resistive index 0.8. Ovary size: 2.1 x 1.8 x 1.5 cm LEFT OVARY: 1.7 cm anechoic benign-appearing cyst adjacent the left ovary. Duplex Doppler demonstrates normal waveform and flow; resistive index 0.7. Ovary size: 2.6 x 1.5 x 2.7 cm CUL-DE-SAC: Unremarkable. No significant free fluid. BLADDER: Unremarkable. OTHER: None. IMPRESSION: 1. No suspicious findings to account for patient's symptoms. 2. Incidental ovarian cysts, possible left paraovarian cyst. Electronically authenticated by: MIKE LINO Date: 2022-06-18 15:34 Normal [facility] DHEA SERUMon 06-17-2022 Dehydroepiandrosterone (DHEA) 144 ng/dL Normal 31-701 [facility] Comment on above: Performed By: #### 4 [id number] #### [facility] [address] [place] [address] Dr. Isi Malave DHEA SERUMon 06-11-2022 Dehydroepiandrosterone (DHEA) WRORD Normal [facility] Comment on above: Result Comment: Test not performed. The required specimen for the test ordered was not received. received room temperature serum contacted Odalis at your facility on 06-11-2022 Performed By: #### Bk BERMUDEZ. #### [facility] [address] [place] [address] Dr. Isi Malave DHEA-SULFATEon 06-11-2022 DHEA-Sulfate 202.0 ug/dL Normal 57.3-279.2 [facility] Comment on above: Performed By: #### Bk CARBALOL #### [facility] [address] [place] [address] Dr. Isi Malave FSHon 06-11-2022 FSH 7.7 mIU/mL Normal [facility] Comment on above: Result Comment: Adul t Female: Follicular phase 3.5 - 12.5 Ovulation phase 4.7 - 21.5 Luteal phase 1.7 - 7.7 Postmenopausal 25.8 - 134.8 Performed By: #### L BCFS #### [facility] [address] [place] [address] Dr. Isi Malave LUTEINIZING HORMONE (LH)on 0 06-11-2022 LH 5.5 mIU/mL Normal [facility] Comment on above: Result Comment: Adul t Female: Follicular phase 2.4 - 12.6 Ovulation phase 14.0 - 95.6 Luteal phase 1.0 - 11.4 Postmenopausal 7.7 - 58.5 Performed By: #### 4 [id number] #### [facility] [address] [place] [address] Dr. Isi Malave CBC AUTO DIFFon 06-10-2022 BASO # 0.0 103/ul Normal 0.0-0.1 [facility] Comment on above: Performed By: #### 4 [id number] #### [facility] [address] [place] [address] Dr. Isi Malave Basophils/100 WBC (Bld) 0.3 % Normal 0.2-2.0 [facility] Comment on above: Performed By: #### 4 [id number] #### [facility] [address] [place] [address] Dr. Isi Malave EO # 0.1 103/ul Normal 0.0-0.7 [facility] Comment on above: Performed By: #### 4 [id number] #### [facility] [address] [place] [address] Dr. Isi Malave Eosinophils/100 WBC (Bld) 1.9 % Normal 0.9-7.0 [facility] Comment on above: Performed By: #### 4 [id number] #### [facility] [address] [place] [address] Dr. Isi Malave Erythrocyte distribution width (RBC) [Ratio] 13.1 % Normal 11.0-15.0 [facility] Comment on above: Performed By: #### 4 [id number] #### [facility] [address] [place] [address] Dr. Isi Malave Hematocrit (Bld) [Volume fraction] 38.9 % Normal 36.0-48.0 [facility] Comment on above: Performed By: #### 4 [id number] #### [facility] [address] [place] [address] Dr. Isi Malave Hemoglobin (Bld) [Mass/Vol] 13.0 g/dL Normal 12.0-16.0 [facility] Comment on above: Performed By: #### 4 [id number] #### [facility] [address] [place] [address] Dr. Isi Malave IG # 0.02 10e3/ul Normal 0.00-0.03 [facility] Comment on above: Performed By: #### 4 [id number] #### [facility] [address] [place] [address] Dr. Isi Malave IG % 0.3 % Normal 0.0-0.5 [facility] Comment on above: Performed By: #### 4 [id number] #### [facility] [address] [place] [address] Dr. Isi Malave LYMPH # 1.4 103/ul Normal 1.2-3.8 [facility] Comment on above: Performed By: #### 4 [id number] #### [facility] [address] [place] [address] Dr. Isi Malave Lymphocytes/100 WBC (Bld) 21.7 % Normal 20.5-60.0 [facility] Comment on above: Performed By: #### 4 [id number] #### [facility] [address] [place] [address] Dr. Isi Malave MANUAL DIFF REQ NO Normal [facility] Comment on above: Performed By: #### 4 [id number] #### [facility] [address] [place] [address] Dr. Isi Malave MCH (RBC) [Entitic mass] 28.5 pg Normal 26.7-34.0 [facility] Comment on above: Performed By: #### 4 [id number] #### [facility] [address] [place] [address] Dr. Isi Malave MCHC (RBC) [Mass/Vol] 33.4 g/dL Normal 29.9-35.2 [facility] Comment on above: Performed By: #### 4 [id number] #### [facility] [address] [place] [address] Dr. Isi Malave MCV (RBC) [Entitic vol] 85.3 fL Normal 81.0-99.0 [facility] Comment on above: Performed By: #### 4 [id number] #### [facility] [address] [place] [address] Dr. Isi Malave MONO # 0.4 103/ul Normal 0.3-0.8 [facility] Comment on above: Performed By: #### 4 [id number] #### [facility] [address] [place] [address] Dr. Isi Malave Monocytes/100 WBC (Bld) 6.0 % Normal 1.7-12.0 [facility] Comment on above: Performed By: #### 4 [id number] #### [facility] [address] [place] [address] Dr. Isi Malave NEUT # 4.3 103/ul Normal 1.4-6.5 [facility] Comment on above: Performed By: #### 4 [id number] #### [facility] [address] [place] [address] Dr. Isi Malave Neutrophils/100 WBC (Bld) 69.8 % Normal 43.0-75.0 [facility] Comment on above: Performed By: #### 4 [id number] #### [facility] [address] [address] [address] Isi Malave Platelet mean volume (Bld) [Entitic vol] 9.1 fL Critically low 9.5-13.5 [facility] Comment on above: Performed By: #### 4 [id number] #### [facility] [address] [address] [address] Isi Malave PLT 274 103/ul Normal 150-450 [facility] Comment on above: Performed By: #### 4 [id number] #### [facility] [address] [address] [address] Isi Malave RBC 4.56 106/ul Normal 4.20-5.40 [facility] Comment on above: Performed By: #### 4 [id number] #### [facility] [address] [place] [address] Dr. Isi Malave WBC 6.2 103/ul Normal 4.0-11.0 [facility] Comment on above: Performed By: #### 4 [id number] #### [facility] [address] [place] [address] Dr. Isi Malave FREE T4on 06-10-2022 Free T4 [Mass/Vol] 0.93 ng/dL Normal 0.76-1.46 [facility] Comment on above: Performed By: #### F T4 #### [facility] [address] [place] [address] Dr. Isi Malave GLYCOHEMOGLOBIN A1Con 2022 ADA RECOMMENDATION SEE BELOW Normal [facility] Comment on above: Result Comment: ADA RECOMMENDED LIMIT 4.0 - 6.0 ADA THERAPEUTIC TARGET < 7.0 ACTION SUGGESTED > 7.0 Performed By: #### A 1C #### [facility] [address] [place] [address] Dr. Isi Malave Glucose [Mass/Vol] 97 mg/dL Normal [facility] Comment on above: Performed By: #### A 1C #### [facility] [address] [address] [address] Isi Malave HbA1c (Bld) [Mass fraction] 5.0 % Normal 4.5-6.2 [facility] Comment on above: Performed By: #### A 1C #### [facility] [address] [address] [address] Isi Malave MG MAMM SCREEN 3D WILFRIDO CADon 06-10-2022 MG MAMM SCREEN 3D WILFRIDO CAD Patient: ODALIS LAMAS Exam Date: 06/10/2022 : 1980 Gender:F Ordering : DR LIZZ CHRISTIANSON . Admission #: [id number] Family : ANTIHA GREWAL FRANCISCO . Order #: [id number] CLICK HERE TO VIEW EXAM RADIOLOGY REPORT PROCEDURE: MAMMOGRAM SCREENING 3D BILATERAL CAD COMPARISON: MG MAMM SCREEN 3D WILFRIDO CAD, 05/21/2020. INDICATIONS: Screening mammography Calculator Name NCI Breast Cancer Risk Assessment Tool 5 Year Breast Cancer Risk 0.90% Lifetime Breast Cancer Risk 11.80% Personal Breast Cancer No Personal Ovarian Cancer No Treatments None Family Cancers None LOCATION: [facility] BREAST COMPOSITION: Scattered areas fibroglandular density. FINDINGS: [...] Mike Lino M.D. on 06/10/2022 at 14:14 Normal [facility] PREG QUANT HCGon 06-10-2022 HCG QUANT <1 Normal [facility] Comment on above: Performed By: #### T SH, PREGQNT #### [facility] [address] [address] [address] Isi Malave HCG RANGE SEE BELOW Normal [facility] Comment on above: Result Comment: 5-50 0.2-1 WEEK 50-500 1-2 WEEKS 100-5,000 2-3 WEEKS 500-10,000 3-4 WEEKS 1,000-50,000 4-5 WEEKS 10,000-100,000 5-6 WEEKS 15,000-200,000 6-8 WEEKS 10,000-100,000 2-3 MONTHS Performed By: #### T AGUSTIN, PREGQNT #### [facility] [address] [place] [address] Dr. Isi Malave TSHon 06-10-2022 TSH 1.756 uIU/mL Normal 0.358-3.740 [facility] Comment on above: Performed By: #### T AGUSTIN, PREGQNT #### [facility] [address] [place] [address] Dr. Isi Malave PAP ACOG PANEL 2: 30 to 65on 04-30-2022 . . Normal [facility] Comment on above: Result Comment: Perf ormed at: WB Performed By: #### 4 [id number] #### [facility] [address] [place] [address] Dr. Isi Malave Age Gdln ACOG Testing 30-65 Normal [facility] Comment on above: Performed By: #### 4 [id number] #### [facility] [address] [place] [address] Dr. Isi Malave DIAGNOSIS: Comment Normal [facility] Comment on above: Result Comment: NEGA TIVE FOR INTRAEPITHELIAL LESION OR MALIGNANCY. THIS SPECIMEN WAS RESCREENED PART OF OUR [employer]WAKE OVERNIGHT COUNSELOR PROGRAM. Performed at: WB Performed By: #### 4 [id number] #### [facility] [address] [place] [address] Dr. Isi Malave HPV Aptima Negative Normal Negative [facility] Comment on above: Result Comment: This nucleic acid amplification test detects fourteen high-risk HPV types (16,18,31,33,35,39,45,51,52,56,58,59,66,68) without differentiation. Performed at: =G Performed By: #### 4 [id number] #### [facility] [address] [place] [address] Dr. Isi Malave HPV Genotype Reflex Comment Normal [facility] Comment on above: Result Comment: Crit eria not met, HPV Genotype not performed. Performed at: WB Performed By: #### 4 [id number] #### [facility] [address] [place] [address] Dr. Isi Malave Methodology: Comment [facility] Comment on above: Result Comment: This liquid based ThinPrep(R) pap test was screened with the use of an image guided system. Performed at: WB Performed By: #### 4 [id number] #### [facility] [address] [place] [address] Dr. Isi Malave Note: Comment [facility] Comment on above: Result Comment: The Pap smear is a screening test designed to aid in the detection of premalignant and malignant conditions of the uterine cervix. It is not a diagnostic procedure and should not be used as the sole means of detecting cervical cancer. Both false-positive and false-negative reports do occur. . Performed at: WB Performed By: #### 4 [id number] #### [facility] [address] [place] [address] Dr. Isi Malave Performed by: Comment Normal [facility] Comment on above: Result Comment: Elvin Vergara, Solo Musician (ASCP) Performed at: WB Performed By: #### 4 [id number] #### [facility] [address] [place] [address] Dr. Isi Malave QC reviewed by: Comment [facility] Comment on above: Result Comment: Merly Hernandez, Solo Musician Performed at: WB Performed By: #### 4 [id number] #### [facility] [address] [place] [address] Dr. Isi Malave Specimen adequacy: Comment [facility] Comment on above: Result Comment: Sati sfactory for evaluation. Endocervical and/or squamous metaplastic cells (endocervical component) are present. Performed at: WB Performed By: #### 4 [id number] #### [facility] [address] [place] [address] Dr. Isi Malave Vital Signs Date Time Vital Sign Value Performing Clinician Faci lity 06-14-2024 15:18-0400 Body height 162.6 cm Daphnie Thomas [employer] SALESPERSON-SENIOR LEAD DEVELOPER Work Phone: [facility] 06-14-2024 15:18-0400 Body mass index (BMI) [Ratio] 34.84 kg/m2 Daphnie Thomas [employer] SALESPERSON-SENIOR LEAD DEVELOPER Work Phone: [facility] 06-14-2024 15:18-0400 Body weight 92.08 kg Daphnie Thomas [employer] SALESPERSON-SENIOR LEAD DEVELOPER Work Phone: [facility] 06-14-2024 15:18-0400 Diastolic blood pressure 80 mm[Hg] Daphniejose Thomas [employer] SALESPERSON-SENIOR LEAD DEVELOPER Work Phone: [facility] 06-14-2024 15:18-0400 Heart rate 79 /min Daphniejose Thomas [employer] SALESPERSON-SENIOR LEAD DEVELOPER Work Phone: [facility] 06-14-2024 15:18-0400 SaO2% (BldA) [Mass fraction] 96 % Daphniejose Thomas [employer] SALESPERSON-SENIOR LEAD DEVELOPER Work Phone: [facility] 06-14-2024 15:18-0400 Systolic blood pressure 122 mm[Hg] Daphnie William [employer] SALESPERSON-SENIOR LEAD DEVELOPER Work Phone: [facility] 12-15-2023 12:13-0400 Diastolic blood pressure 86 mm[Hg] Daphnie William [employer] SALESPERSON-SENIOR LEAD DEVELOPER Work Phone: [facility] 12-15-2023 12:13-0400 Heart rate 81 /min Daphnie William [employer] SALESPERSON-SENIOR LEAD DEVELOPER Work Phone: [facility] 12-15-2023 12:13-0400 SaO2% (BldA) [Mass fraction] 96 % Daphnie William [employer] SALESPERSON-SENIOR LEAD DEVELOPER Work Phone: [facility] 12-15-2023 12:13-0400 Systolic blood pressure 128 mm[Hg] Daphnie William [employer] SALESPERSON-SENIOR LEAD DEVELOPER Work Phone: [facility] 07-20-2023 19:29-0400 Body height 162.6 cm Pmh 1 [facility] 07-20-2023 19:29-0400 Body mass index (BMI) [Ratio] 37.25 kg/m2 Pmh 1 [facility] 07-20-2023 19:29-0400 Body weight 98.43 kg Pmh 1 [facility] 03-17-2023 14:08-0500 Body height 162.6 cm Daphniejose Thomas [employer] SALESPERSON-SENIOR LEAD DEVELOPER Work Phone: [facility] 03-17-2023 14:08-0500 Body mass index (BMI) [Ratio] 37.28 kg/m2 Daphniejose Thomas [employer] SALESPERSON-SENIOR LEAD DEVELOPER Work Phone: [facility] 03-17-2023 14:08-0500 Body weight 98.52 kg Daphniejose Thomas [employer] SALESPERSON-SENIOR LEAD DEVELOPER Work Phone: [facility] 03-17-2023 14:08-0500 Diastolic blood pressure 83 mm[Hg] Daphniejose Thomas [employer] SALESPERSON-SENIOR LEAD DEVELOPER Work Phone: [facility] 03-17-2023 14:08-0500 Heart rate 85 /min Daphniejose Thomas [employer] SALESPERSON-SENIOR LEAD DEVELOPER Work Phone: [facility] 03-17-2023 14:08-0500 SaO2% (BldA) [Mass fraction] 97 % Daphniejose Thomas [employer] SALESPERSON-SENIOR LEAD DEVELOPER Work Phone: [facility] 03-17-2023 14:08-0500 Systolic blood pressure 124 mm[Hg] Daphnie William [employer] SALESPERSON-SENIOR LEAD DEVELOPER Work Phone: [facility] Encounters Encounter Date Encounter Type Care Provider Facility Start: 12-27-2024 ambulatory RESTORATION TECHNICIAN Angle Riley Facil ity:[facility] Start: 06-28-2024 End: 06-28-2024 ambulatory RESTORATION TECHNICIAN Angle L Rosemary [facility] Start: 06-15-2024 End: 06-15-2024 Telephone encounter Petty SCHULZ [facility] Start: 06-14-2024 End: 06-14-2024 Office outpatient visit 25 minutes [facility] [employer] SALESPERSON-SENIOR LEAD DEVELOPER Work Phone: [facility] Comment on above: SEMAJ (obstructive sle ep apnea) (Primary Dx); CPAP use counseling; Noncompliance with CPAP treatment; Obesity (BMI 30-39.9) Start: 06-14-2024 End: 06-14-2024 ambulatory [facility] Start: 06-12-2024 End: 06-12-2024 [facility] Start: 05-11-2024 End: 05-11-2024 ambulatory RESTORATION TECHNICIAN Angle L Rosemary [facility] Start: 04-12-2024 End: 04-12-2024 ambulatory RESTORATION TECHNICIAN Angle L Rosemary [facility] Start: 03-23-2024 ambulatory RESTORATION TECHNICIAN Angle Rosemary Facilit y:[facility] Start: 12-23-2023 End: 12-23-2023 Telephone [facility] Start: 12-15-2023 End: 12-15-2023 ambulatory [facility] Start: 12-15-2023 End: 12-15-2023 Office outpatient visit 25 minutes Daphnie [facility] [employer] SALESPERSON-SENIOR LEAD DEVELOPER Work Phone: [facility] Comment on above: SEMAJ (obstructive sle ep apnea) (Primary Dx); CPAP use counseling; Noncompliance with CPAP treatment; Obesity (BMI 30-39.9) Start: 10-13-2023 End: 10-13-2023 ambulatory SLIME SINGH Not Available Start: 09-06-2023 End: 09-06-2023 ambulatory LIZZ SAMMY Not Available Start: 08-09-2023 End: 08-09-2023 ambulatory LIZZ SAMMY Not Available Start: 07-22-2023 End: 07-22-2023 Telephone encounter Aissatou Goyal MD Work Phone: [facility] Start: 07-20-2023 End: 07-20-2023 Clinical Support [facility] Comment on above: SEMAJ (obstructive sle ep apnea) Start: 07-20-2023 End: 07-22-2023 ambulatory DAPHNIE THOMAS [facility] Start: 06-29-2023 End: 06-29-2023 Telephone encounter Orders Support User Transcribe [facility] Comment on above: Sleep Lab (Hst Order ) Start: 06-28-2023 End: 06-28-2023 Orders Only Daphnie Thomas [employer] SALESPERSON-SENIOR LEAD DEVELOPER Work Phone: [facility] Comment on above: SEMAJ (obstructive sle ep apnea) (Primary Dx) Start: 03-22-2023 Telephone encounter Daphnie johnson [employer] SALESPERSON-SENIOR LEAD DEVELOPER Work Phone: [facility] Comment on above: Sleep Lab (PSG) Start: 03-17-2023 End: 03-17-2023 Office outpatient new 45 minutes Daphnie Thomas [employer] SALESPERSON-SENIOR LEAD DEVELOPER Work Phone: [facility] Comment on above: SEMAJ (obstructive sle ep apnea) (Primary Dx); Anxiety Start: 06-18-2022 End: 06-19-[address] LIZZ CHRISTIANSON . Facility: Start: 06-10-2022 End: 06-11-2022 ambulatory SLIME SINGH . Facility:[facility] Start: 04-22-2022 End: 04-22-[address] LIZZ CHRISTIANSON . Facility:[facility] Procedures Date Procedure Procedure Detail Performing Clinician Start: 04-22-2022 Microscopic observat ion [Identifier] in Cervix by Cyto stain Daphnie Thomas [employer] SALESPERSON-SENIOR LEAD DEVELOPER Work Phone: Plan of Treatment Date Care Activity Detail Author Start: 06-14-2025 Adult BMI Screening Adult BMI Screen ing [facility] Start: 06-14-2025 Tobacco Screening Tobacco Screening [facility] Start: 04-22-2025 Screening for malign ant neoplasm of cervix Pap Smear [facility] Start: 12-14-2024 Tobacco Screening Tobacco Screening [facility] Start: 10-30-2024 Influenza vaccination Influenza Vacc ine [facility] Start: 09-13-2024 End: 09-13-2024 Patient encounter procedure 09/13/2024 2:00 PM EDT Office Visit [facility] [place] [phone] Daphnie Thomas, [employer] SALESPERSON-SENIOR LEAD DEVELOPER [address] [address] [facility] Start: 07-19-2024 Adult BMI Screening Adult BMI Screen ing [facility] Start: 06-14-2024 End: 06-14-2024 Patient encounter procedure 06/14/2024 3:15 PM EDT Office Visit [facility] [address] [place] [phone] Daphnie Thomas, [employer] SALESPERSON-SENIOR LEAD DEVELOPER [address] [address] [facility] Start: 03-18-2024 Tobacco Screening Tobacco Screening [facility] Start: 03-17-2024 Adult BMI Screening Adult BMI Screen ing [facility] Start: 03-17-2024 Tobacco Screening Tobacco Screening [facility] Start: 10-31-2023 COVID-19 Vaccine ( season) COVID-19 Vaccine ( season) [facility] Start: 10-31-2023 COVID-19 Vaccine ( season) COVID-19 Vaccine ( season) [facility] Start: 10-31-2023 Influenza vaccination Influenza Vacc ine [facility] Start: 09-15-2023 End: 09-15-2023 Patient encounter procedure 09/15/2023 1:45 PM EDT Office Visit [facility] [address] [place] [phone] JordanshoshanaDaphnie, [employer] SALESPERSON-SENIOR LEAD DEVELOPER [address], [address] [place] [address] [facility] Start: 09-01-2023 DTaP,Tdap and Td Vaccines (2 - Td or Tdap) DTaP,Tdap and Td Vaccines (2 - Td or Tdap) [facility] Start: 07-20-2023 End: 07-20-2023 Clinical Support 07/20/2023 7:30 PM EDT Clinical Support [facility] [address] [place] [phone] [facility] Start: 07-14-2023 End: 07-14-2023 Clinical Support 07/14/2023 8:00 PM EDT Clinical Support [facility] [address] [place] [phone] [facility] Start: 10-30-2022 COVID-19 Vaccine ( season) COVID-19 Vaccine ( season) [facility] Start: 10-30-2022 Influenza vaccination Influenza Vacc ine [facility] Start: 11-03-1999 Screening for malign ant neoplasm of cervix Pap Smear [facility] Start: 1996 Adult BMI Follow Up Plan Adult BMI Follow Up Plan [facility] Start: 1990 [facility] End: 06-27-2024 Home sleep study Home sleep study Sleep Center Routine SEMAJ (obstructive sleep apnea) 1 Occurrences starting 06/28/2023 until 06/27/2024 [employer] Work Phone: Comment on above: 1 Occurrences starti ng 06/28/2023 until 06/27/2024 End: 03-17-2024 [facility] Routine SEMAJ (obstructive sleep apnea) 1 Occurrences starting 03/17/2023 until 03/17/2024 [facility] Work Phone: Comment on above: 1 Occurrences starti ng 03/17/2023 until 03/17/2024 Payers Date Payer Category Payer Medicaid [id number] 2022 Medicaid [id number] 1980 Unknown [id number] 1980 Unknown [id number] 1980 Unknown [id number] 2.16.84 [id number] 1978 Unknown [id number] 2.16.84 [id number] 1978 Unknown [id number] 2.16.8 40.1.323686.3.579.2.1286 1978 Unknown [id number] 2.16.84 0.1.653910.3.579.2.1259 1978 Unknown [id number] 2.16.84 0.1.091205.3.579.2.1259 1978 Unknown [id number] 2.16.84 0.1.309322.3.579.2.1259 1978 Unknown [id number] 2.16. [id number] 1978 Unknown [id number] 2.16.8 40.1.547732.3.579.2.1286 1978 Unknown [id number] 2.16.8 40.1.223942.3.579.2.727 1978 Unknown [id number] 2.16.8 40.1.350024.3.579.2.727 1978 Unknown [id number] 2.16.8 40.1.129177.3.579.2.727 1978 Unknown [id number] 2.16.8 40.1.547490.3.579.2.727 Social History Date Type Detail Facility [facility] Start: 04-19-2019 Tobacco use and exposure Smokeless tobacco non-user [facility] Start: 03-18-2023 End: 06-14-2024 Alcoholic beverage intake Ex-drinker (finding) [facility] Start: 04-11-2020 End: 03-18-2023 History of Social function [facility] Start: 04-11-2020 End: 03-18-2023 Tobacco use panel [facility] Childcare Unknown [facility] Start: 1980 Sex assigned at Not on file P [facility] Start: 10-04-2014 Sex Female (finding) [facility] Clinical Notes 03-17-2023 to 06-15-2024 Telephone Encounter - JAZZ Garcia - 06/15/2024 12:44 PM EDTTelephone Encounter - JAZZ Garcia - 06/15/2024 12:44 PM EDTSklarissa Thomas APRN- RICCARDO - 06/14/2024 3:15 PM EDT Note Date & Type Note Facility 06-15-2024 Miscellaneous Notes Formattin g of this note might be different from the original. PAP mask and supplies order with supportive documentation faxed to [facility]. documented in this encounter [facility] 06-15-2024 Telephone encount er Note PAP mask and supplies order with supportive documentation faxed to [facility]. [facility] 06-14-2024 History of Presen t illness Narrative Chief Complaint: Odalis Lamas [facility] follow up on 06/14/2024. She is a 43 y.o. female followed [facility] the [facility] for SEMJA, for which auto-CPAP 5-20 cm H2O was prescribed. At the time of the last visit on 12/15/23, the plan was to continue APAP. HPI: The patient reports that she is non-adherent to her nocturnal ventilatory support. She has tried 2 different masks the first one was a nasal mask, but was causing sores in her nose which created a callus and she did not like that. The other was a FFM and she could not tolerate this mask. Download provided shows days tried with PAP machine. She denies any dyspnea, fevers, chills, hemoptysis, wheezing, or chest pain. Overall, she is very pleased with her current status. She denies sleepiness while driving. Supplemental O2 use: none Current PAP interface: She uses a Nasal Mask. She does not use a chinstrap. She does use the heated inline humidifier. Cleaning supplies with soap and water. [place] Sleepiness Scale: Sitting and Reading: Slight Chance Watching TV: Slight Chance Sitting inactive in a public place (theater, meeting): Never As a passenger in a car for an hour without a break: Never Lying down in the afternoon to rest: Slight Chance Sitting and talking to someone: Never Sitting quietly after lunch (without alcohol): Never In a car, while stopped for a few minutes in traffic: Never Total: 3 OARRS: Reviewed: no PMH: Pertinent History: Her pertinent medical history includes Past Medical History: Diagnosis Date Anxiety H/O migraine Medications: Reviewed with patient. Current Outpatient Medications: WELLBUTRIN XL 300 mg 24 hr tablet, Take 1 tablet (300 mg total) by mouth every morning., Disp: , Rfl: ALPRAZolam (XANAX) 0.25 mg tablet, Take 1 tablet (0.25 mg total) by mouth nightly as needed for anxiety., Disp: , Rfl: busPIRone (BUSPAR) 10 mg tablet, Take 1 tablet (10 mg total) by mouth 2 (two) times a day as needed Indications: repeated episodes of anxiety., Disp: , Rfl: escitalopram (LEXAPRO) 5 mg tablet, Take 1 tablet (5 mg total) by mouth. (Patient not taking: Reported on 06/14/2024), Disp: , Rfl: metFORMIN XR (GLUCOPHAGE XR) 500 mg 24 hr tablet, Take 1 tablet (500 mg total) by mouth. (Patient not taking: Reported on 06/14/2024), Disp: , Rfl: tiZANidine (ZANAFLEX) 4 mg tablet, Take 1 tablet (4 mg total) by mouth. (Patient not taking: Reported on 06/14/2024), Disp: , Rfl: Vitals: 06/14/24 1518 BP: 122/80 Pulse: 79 SpO2: 96% Weight: 92.1 kg (203 lb) Height: 162.6 cm (5' 4 ) Allergies: Reviewed with patient. Erythromycin, Grass pollen, and Penicillins Family History: Family History Problem Relation Age of Onset Breast cancer Neg Hx Social History: Social History Socioeconomic History Marital status: Tobacco Use Smoking status: Never Smokeless tobacco: Never Substance and Sexual Activity Alcohol use: Not Currently Drug use: Not Currently Travel History: Denies recent travel. ROS: All 11 systems have been reviewed: Review of Systems Constitutional: Negative for chills, fatigue and fever. Respiratory: Negative for cough, shortness of breath and wheezing. Cardiovascular: Negative for chest pain/discomfort. All other systems are reviewed and are negative except as noted. Physical Examination: Vital signs BP 122/80 Pulse 79 Ht 162.6 cm (5' 4 ) Wt 92.1 kg (203 lb) SpO2 96% BMI 34.84 kg/m Physical Exam Vitals and nursing note reviewed. Constitutional: Appearance: Normal appearance. She is obese. Cardiovascular: Heart sounds: Normal heart sounds. Musculoskeletal: Cervical back: Neck supple. Skin: General: Skin is warm and dry. Neurological: Mental Status: She is alert and oriented to person, place, and time. Psychiatric: Mood and Affect: Mood normal. Behavior: Behavior normal. Laboratory DATA: Lab Results Component Value Date WBC 4.8 11/01/2018 HGB 13.1 11/01/2018 HCT 37.9 11/01/2018 MCV 89 11/01/2018 PLT 217 11/01/2018 No results found for: FERRITIN Chemistry No results found for: NA , K , CL , CO2 , BUN , CREATININE , GLU No results found for: CALCIUM , ALKPHOS , AST , ALT No results found for: TSH No results found. DATA: DME: FLOOD Data card was available for PAP usage data download. PAP compliance is unsatisfactory. Impression: There are no diagnoses linked to this encounter. SEMAJ with adherence to nocturnal ventilatory support on a nightly basis. Obesity Body mass index is 34.84 kg/m . Plan: Discussed diagnosis, its evaluation, treatment and usual course. All questions answered. Educational material distributed. No orders of the defined types were placed in this encounter. Orders Placed or Reconciled This Encounter Medications WELLBUTRIN XL 300 mg 24 hr tablet Sig: Take 1 tablet (300 mg total) by mouth every morning. She is to continue APAP 5-20 cm H20 on a nightly basis. New mask and supplies as needed. Independently reviewed and interpreted data download and ESS. Sampled mask provided. Diet and exercise were discussed in detail. Any age appropriate or routine screening per PCP. Follow up in 12 Months time. If her condition should change prior to this she is encouraged to give our office a call. Discussed triggers to call back before follow up including weight change > 10%, major medical issues including stroke, arrhythmia or heart attack, or significant change in symptoms. EDUCATION: Driving precautions were reviewed. I advised the patient not to drive if sleepy, and to dust puller if sleepiness occurs while driving. Above plan as discussed with the patient who acknowledged understanding and agreement. Health risks associated with untreated SEMAJ were discussed (cardiopulmonary, cerebrovascular, and anesthesia/sedative-related). Discussed triggers to call back before next visit including weight change > 10%, major medical issues including stroke, arrhythmia or heart attack, or significant change in symptoms. This note is dictated with the use of M*Modal.Please note that this dictation was completed with computer voice recognition software. Quite often unanticipated grammatical, syntax, homophones, and other interpretive errors are inadvertently transcribed by the computer software. Please disregard these errors. Please excuse any errors that have escaped final proofreading. Daphnie Thomas Replaced by [facility] Office: [phone] 8:49 PM on 06/14/2024 CC: MD Daphnie CASTAÑEDA APRN-CNP [id number]/14/[id number] documented [email or web address] Instructions KAPIL Abdullahi - 06/14/2024 3:15 PM EDT If you re looking for general health and wellness resources, please visit [email or web address]. documented in this encounter [facility] 06-12-2024 Miscellaneous Notes Formattin g of this note might be different from the original. Pt called in, says not using her APAP and unsure if should keep upcoming appt on 06/14 with SK. Advised that can discuss options with SK, possible oral appliance if unable to use PAP. Pt will keep appt but also states she has lost 10 lbs. AHI on June 2023 HST was 10.3. documented in this encounter [facility] 06-12-2024 Telephone encount er Note Pt called in, says not using her APAP and unsure if should keep upcoming appt on 06/14 with SK. Advised that can discuss options with SK, possible oral appliance if unable to use PAP. Pt will keep appt but also states she has lost 10 lbs. AHI on June 2023 HST was 10.3. [facility] 12-23-2023 Miscellaneous Notes Formattin g of this note might be different from the original. PAP mask and supplies order with supportive documentation faxed to [facility]. documented in this encounter [facility] 12-23-2023 Telephone encount er Note PAP mask and supplies order with supportive documentation faxed to [facility]. [facility] 12-15-2023 History of Presen t illness Narrative Images from the original note were not included. Chief Complaint: Odalis Lamas returns to the [facility] for follow up on 12/15/2023. She is a 43 y.o. female followed at the [facility] for SEMAJ, for which auto-CPAP 5-20 cm H2O was prescribed. At the time of the last visit on 03/17/23, the plan was to PSG. HPI: The patient reports that she is adherent to her nocturnal ventilatory support for 4.5 hours a night 7 days per week. She reports feeling the benefits of wearing it nightly and denies any am fatigue or excessive daytime sleepiness. Denies any aerophagia. Denies any issues with mask fit or PAP machine. She denies any dyspnea, fevers, chills, hemoptysis, wheezing, or chest pain. Overall, she is very pleased with her current status. She denies sleepiness while driving. Supplemental O2 use: none Current PAP interface: She uses a both nasal and FFM. She does not use a chinstrap. She does use the heated inline humidifier. Cleaning supplies with soap and water. [place] Sleepiness Scale: Sitting and Reading: (!) Moderate Chance Watching TV: (!) Moderate Chance Sitting inactive in a public place (theater, meeting): Never As a passenger in a car for an hour without a break: Never Lying down in the afternoon to rest: (!) Moderate Chance Sitting and talking to someone: Never Sitting quietly after lunch (without alcohol): Slight Chance In a car, while stopped for a few minutes in traffic: Never Total: 7 OARRS: Reviewed: no PMH: Pertinent History: Her pertinent medical history includes Past Medical History: Diagnosis Date Anxiety H/O migraine Medications: Reviewed with patient. Current Outpatient Medications: escitalopram (LEXAPRO) 5 mg tablet, Take 1 tablet (5 mg total) by mouth., Disp: , Rfl: metFORMIN XR (GLUCOPHAGE XR) 500 mg 24 hr tablet, Take 1 tablet (500 mg total) by mouth., Disp: , Rfl: ALPRAZolam (XANAX) 0.25 mg tablet, Take 1 tablet (0.25 mg total) by mouth nightly as needed for anxiety., Disp: , Rfl: busPIRone (BUSPAR) 10 mg tablet, Take 1 tablet (10 mg total) by mouth 2 (two) times a day as needed Indications: repeated episodes of anxiety., Disp: , Rfl: tiZANidine (ZANAFLEX) 4 mg tablet, Take 1 tablet (4 mg total) by mouth., Disp: , Rfl: Vitals: 12/15/23 1213 BP: 128/86 Pulse: 81 SpO2: 96% Allergies: Reviewed with patient. Erythromycin, Grass pollen, and Penicillins Family History: Family History Problem Relation Age of Onset Breast cancer Neg Hx Social History: Social History Socioeconomic History Marital status: Tobacco Use Smoking status: Never Smokeless tobacco: Never Substance and Sexual Activity Alcohol use: Not Currently Drug use: Not Currently Travel History: Denies recent travel. ROS: All 11 systems have been reviewed: Review of Systems Constitutional: Negative for chills, fatigue and fever. Respiratory: Negative for cough, shortness of breath and wheezing. Cardiovascular: Negative for chest pain/discomfort. All other systems are reviewed and are negative except as noted. Physical Examination: Vital signs BP 128/86 Pulse 81 SpO2 96% Physical Exam Vitals and nursing note reviewed. Constitutional: Appearance: Normal appearance. She is obese. Cardiovascular: Heart sounds: Normal heart sounds. Pulmonary: Breath sounds: Normal breath sounds. Musculoskeletal: Cervical back: Neck supple. Skin: General: Skin is warm and dry. Neurological: Mental Status: She is alert and oriented to person, place, and time. Psychiatric: Mood and Affect: Mood normal. Behavior: Behavior normal. Laboratory DATA: Lab Results Component Value Date WBC 4.8 11/01/2018 HGB 13.1 11/01/2018 HCT 37.9 11/01/2018 MCV 89 11/01/2018 PLT 217 11/01/2018 No results found for: FERRITIN Chemistry No results found for: NA , K , CL , CO2 , BUN , CREATININE , GLU No results found for: CALCIUM , ALKPHOS , AST , ALT No results found for: TSH No results found. DATA: 07/20/23 HST: HAYLIE = 10.3 Min SpO2 = 91% APAP 5-20 cm H20 pressure DME: FLOOD Data card was available for PAP usage data download. PAP compliance is unsatisfactory. Impression: Odalis was seen today for sleep apnea. Diagnoses and all orders for this visit: SEMAJ (obstructive sleep apnea) - PAP Mask and Supplies CPAP use counseling Noncompliance with CPAP treatment Obesity (BMI 30-39.9) SEMAJ with adherence to nocturnal ventilatory support on a nightly basis. Obesity BMI 37.25 Plan: Discussed diagnosis, its evaluation, treatment and usual course. All questions answered. Educational material distributed. Orders Placed This Encounter Procedures PAP Mask and Supplies Please link us to patient's machine if not completed already. Scheduling Instructions: Length of Need: 12 months -Full Face Interface1/3mos -Full Face Cushion 1/mo -Nasal Cushion 2/mo, -Nasal Mask 1/3mos -Pillows 2/mo -Htd Tubing 1/3mos -Headgear 1/6mos -Chin Strap1/6mos -Non-Disposable Filter1/6mos -Disposable Filter2/mo -Water Chamber1/6mos -Std Tubing 1/3 mos -Add heat humidification with tubing Order Specific Question: Please specify Answer: PAP Mask and Supplies Order Specific Question: The face to face evaluation was performed on Answer: 12/15/2023 Orders Placed or Reconciled This Encounter Medications metFORMIN XR (GLUCOPHAGE XR) 500 mg 24 hr tablet Sig: Take 1 tablet (500 mg total) by mouth. escitalopram (LEXAPRO) 5 mg tablet Sig: Take 1 tablet (5 mg total) by mouth. She is to continue APAP 5-20 cm H20 on a nightly basis. New mask and supplies as needed. Independently reviewed and interpreted data download and ESS Diet and exercise were discussed in detail. Any age appropriate or routine screening per PCP. Follow up in 3 Months time. If her condition should change prior to this she is encouraged to give our office a call. Discussed triggers to call back before follow up including weight change > 10%, major medical issues including stroke, arrhythmia or heart attack, or significant change in symptoms. EDUCATION: Driving precautions were reviewed. I advised the patient not to drive if sleepy, and to dust puller if sleepiness occurs while driving. Above plan as discussed with the patient who acknowledged understanding and agreement. Health risks associated with untreated SEMAJ were discussed (cardiopulmonary, cerebrovascular, and anesthesia/sedative-related). Discussed triggers to call back before next visit including weight change > 10%, major medical issues including stroke, arrhythmia or heart attack, or significant change in symptoms. This note is dictated with the use of M*Modal.Please note that this dictation was completed with computer voice recognition software. Quite often unanticipated grammatical, syntax, homophones, and other interpretive errors are inadvertently transcribed by the computer software. Please disregard these errors. Please excuse any errors that have escaped final proofreading. Daphnie Thomas Replaced by [facility] Office: [phone] 1:15 PM on 12/15/2023 CC: MD Daphnie CASTAÑEDA APRN-CNP 12/15/23 1317 documented in this encounter [facility] 12-15-2023 Instructions KAPIL Abdullahi - 12/15/2023 12:00 PM EDT If you re looking for general health and wellness resources, please visit [email or web address]. documented in this encounter [facility] 07-22-2023 Miscellaneous Notes Formattin g of this note might be different from the original. Home sleep testing interpreted Positive for SEMAJ Auto CPAP ordered please fax to [email or web address] Results note sent to patient Home sleep apnea test on 2023-07-20 (HAYLIE (3%)=10.3 events/hour; HAYLIE (4%)=5.0 events/hour; Ken SpO2=91.0%; Jfvmmq=169.0 lbs; BMI=37.5 kg/m2) DIAGNOSIS: Obstructive Sleep Apnea (G47.33) COMMENTS: This home sleep apnea test, recorded mostly in non-supine positions, demonstrates at least mild obstructive sleep apnea. Please note that home sleep testing may underestimate the degree of obstructive sleep apnea due to lack of EEG monitoring. documented in this encounter [facility] 07-22-2023 Telephone encount er Note Home sleep testing interpreted Positive for SEMAJ Auto CPAP ordered please fax to [facility] Results note sent to patient Home sleep apnea test on 2023-07-20 (HAYLIE (3%)=10.3 events/hour; HAYLIE (4%)=5.0 events/hour; Ken SpO2=91.0%; Penlel=126.0 lbs; BMI=37.5 kg/m2) DIAGNOSIS: Obstructive Sleep Apnea (G47.33) COMMENTS: This home sleep apnea test, recorded mostly in non-supine positions, demonstrates at least mild obstructive sleep apnea. Please note that home sleep testing may underestimate the degree of obstructive sleep apnea due to lack of EEG monitoring. [facility] 06-29-2023 Miscellaneous Notes Formattin g of this note might be different from the original. 06/27 Order received Scheduled HST @ [facility] on 07/19 at 7:30pm Mailed confirmation/verbal Chatted pre auth [place] [employer] HST order & 03/17 Kregel notes in Epic documented in this encounter [facility] 06-29-2023 Telephone encount er Note 06/27 Order received Scheduled HST @ [facility] on 07/19 at 7:30pm Mailed confirmation/verbal Chatted pre auth [place] [employer] HST order & 03/17 [facility]el notes in Epic [facility] 03-22-2023 Miscellaneous Notes Formattin g of this note might be different from the original. 03/17 order received Scheduled PSG at [facility] on 07/14/23 ,my chart confirmation [place] [employer] PSG order & 03/17 [facility] notes in Epic documented in this encounter [facility] 03-22-2023 Telephone encount er Note 03/17 order received Scheduled PSG at [facility] on 07/14/23 ,my chart confirmation [place] [employer] PSG order & 03/17 [facility] notes in Epic [facility] 03-17-2023 History of Presen t illness Narrative Chief Complaint: Odalis Lamas is a 42 y.o. female present for initial visit regarding suspected SEMAJ. HPI Reason for Visit: HISTORY OF PRESENT ILLNESS: Have you previously had a sleep study? NO Do you or your bed partner currently notice any of the following symptoms? Snoring some Breathing pauses when you sleep Almost always Wake up choking or gasping Almost always Wake up with shortness of breath rarely Wake up with dry mouth/sore throat Almost always Nasal/sinus congestion Almost always Morning headaches often Waking up to urinate 2 or more times a night some Heartburn interfering with sleep Almost always Screening teeth while sleeping Almost always Nightmares rarely Sleep walking none Sleep talking none Acting out dreams none Restlessness or discomfort in legs none Kicking/jerking of legs while sleeping none Hallucinations when falling asleep/waking up none Momentary inability to move body (paralysis) as falling asleep or waking up none How would you rate the intensity of her snoring on a scale of 0-4? 2 moderate Have you had any surgery in regards to snoring or sleep apnea? no Have you had any of the following treatments for sleep apnea? Oral appliance no Positional therapy device no Airway surgery: no Weight loss surgery: no SLEEP SCHEDULE: What time do you get into bed? 10 PM-12 AM Time it takes to fall asleep (minutes): 30 What time do you wake up? 5-5:30 AM Family history of sleep apnea: grandmother and Mother You drink any alcohol? none Any caffeine use? none Any illicit drug use? none Patient denies any dyspnea, fever, chills, chest pain or hemoptysis. EPWORTH SLEEPINESS SCALE Sitting and Reading: (!) High Chance Watching TV: (!) Moderate Chance Sitting inactive in a public place (theater, meeting): Never As a passenger in a car for an hour without a break: Slight Chance Lying down in the afternoon to rest: (!) High Chance Sitting and talking to someone: Never Sitting quietly after lunch (without alcohol): Slight Chance In a car, while stopped for a few minutes in traffic: Never Total: 10 OARRS REVIEWED Reviewed: no PMH PERTINENT HISTORY Her pertinent medical history includes Past Medical History: Diagnosis Date Anxiety H/O migraine CURRENT MEDICATIONS Reviewed with patient. Current Outpatient Medications: ALPRAZolam (XANAX) 0.25 mg tablet, Take 1 tablet (0.25 mg total) by mouth nightly as needed for anxiety., Disp: , Rfl: tiZANidine (ZANAFLEX) 4 mg tablet, Take 1 tablet (4 mg total) by mouth., Disp: , Rfl: Vitals: 03/17/23 1408 BP: 124/83 Pulse: 85 SpO2: 97% Weight: 98.5 kg (217 lb 3.2 oz) Height: 162.6 cm (5' 4 ) ALLERGIES Reviewed with patient. Erythromycin and Penicillins FAMILY HISTORY Family History Problem Relation Age of Onset Breast cancer Neg Hx SOCIAL HISTORY Social History Socioeconomic History Marital status: Spouse name: Not on file Number of children: Not on file Years of education: Not on file Highest education level: Not on file Occupational History Not on file Tobacco Use Smoking status: Never Smokeless tobacco: Never Substance and Sexual Activity Alcohol use: Not Currently Drug use: Not Currently Sexual activity: Not on file Other Topics Concern Not on file Social History Narrative Not on file Social Determinants of Health Financial Resource Strain: Not on file Food Insecurity: Not on file Transportation Needs: Not on file Physical Activity: Not on file Stress: Not on file Social Connections: Not on file Interpersonal Safety: Not on file TRAVEL HISTORY Denies recent travel. ROS All 11 systems have been reviewed: Review of Systems Constitutional: Negative for chills, fatigue and fever. Respiratory: Negative for cough, shortness of breath and wheezing. Cardiovascular: Negative for chest pain/discomfort. All other systems are reviewed and are negative except as noted. PHYSICAL EXAM Vital signs BP 124/83 Pulse 85 Ht 162.6 cm (5' 4 ) Wt 98.5 kg (217 lb 3.2 oz) LMP 03/10/2023 SpO2 97% BMI 37.28 kg/m Physical Exam Vitals and nursing note reviewed. Constitutional: Appearance: Normal appearance. She is obese. Cardiovascular: Heart sounds: Normal heart sounds. Pulmonary: Breath sounds: Normal breath sounds. Musculoskeletal: Cervical back: Neck supple. Skin: General: Skin is warm and dry. Neurological: Mental Status: She is alert and oriented to person, place, and time. Psychiatric: Mood and Affect: Mood normal. Behavior: Behavior normal. Assessment: Neurological alert and oriented PFT not obtained PERTINENT LAB RESULTS IMAGING no studies completed X-ray foot right minimum 3 views Result Date: 09/30/2020 History: Pain. Twisting injury 3 weeks ago Study: Right foot 3 view study. Comparison: 09/17/2019 Impression: * No acute abnormality in the right foot.No evidence of fracture or healing fracture. Hallux valgus deformity is appreciated Finalized by Slime Stanford MD on 09/30/2020 2:30 PM No results found. IMPRESSION Suspected obstructive sleep apnea syndrome Fatigue snoring Obesity Body mass index is 37.28 kg/m . History of anxiety PLAN Discussed diagnosis, its evaluation, treatment and usual course. All questions answered. Educational material distributed. Consideration for Home Sleep Apnea Test Consideration of CO2 monitoring (if BMI > 35 and serum CO2 > 27: BMI Readings from Last 1 Encounters: 03/17/23 37.28 kg/m ] Orders Placed This Encounter Procedures PSG Diagnostic Standing Status: Future Standing Expiration Date: 03/17/2024 Order Specific Question: Follow Up Answer: [facility] Sleep Medicine to read and follow patient. Order Specific Question: Reason for Study? Answer: G47.19 Excessive daytime sleepiness Order Specific Question: Reason for Study? Answer: G47.33 Obstructive sleep apnea Orders Placed or Reconciled This Encounter Medications tiZANidine (ZANAFLEX) 4 mg tablet Sig: Take 1 tablet (4 mg total) by mouth. A PSG is ordered. Diet and exercise were discussed in detail Any age-appropriate routine screenings to be completed per PCP Follow up in 6 Months time. If her condition should change prior to this she is encouraged to give our office a call. EDUCATION: Pathophysiology of SEMAJ was explained. Health risks associated with untreated SEMAJ were discussed (cardiopulmonary, cerebrovascular, and anesthesia/sedative-related). Risks associated with excessive daytime sleepiness, particularly while driving/operating machinery were discussed. The patient was instructed to avoid such activities if feeling sleepy, and to stop the activity if sleepiness occurs (dust puller at the next safe opportunity if driving). SEMAJ treatment options were discussed. CPAP is the most predictably effective treatment. If indicated and prescribed, CPAP must be used every night, all night for full benefits. It may take several weeks until fully accustomed to using the treatment, and before benefits (improved sleep quality and daytime alertness) are noticeable. Potential problems with CPAP were reviewed. Interim measures to reduce obstructive sleep apnea severity were recommended (avoidance of the supine position and elevation of the upper body and during sleep). CC: MD Daphnie CASTAÑEDA Replaced by [facility] Office: [phone] 1:04 PM on 03/18/2023 This note is dictated with the use of M*Modal.Please note that this dictation was completed with computer voice recognition software. Quite often unanticipated grammatical, syntax, homophones, and other interpretive errors are inadvertently transcribed by the computer software. Please disregard these errors. Please excuse any errors that have escaped final proofreading. KAPIL Abdullahi 03/18/23 1308 documented in this encounter [facility] 03-17-2023 Instructions KAPIL Abdullahi - 03/17/2023 2:00 PM EST If you re looking for general health and wellness resources, please visit [email or web address]. If you re looking for general health and wellness resources, please visit [email or web address]. documented in this encounter [facility] Evaluation note Diagnosis SEMAJ (obstructive sleep apnea)- Primary Obstructive sleep apnea (adult) (pediatric) [facility] SEMAJ (obstructive sleep apnea)- Primary Obstructive sleep apnea (adult) (pediatric) Anxiety Anxiety state, unspecified [facility] SEMAJ (obstructive sleep apnea) Obstructive sleep apnea (adult) (pediatric) [facility] SEMAJ (obstructive sleep apnea)- Primary Obstructive sleep apnea (adult) (pediatric) Hypersomnia Hypersomnia, unspecified [facility] SEMAJ (obstructive sleep apnea)- Primary Obstructive sleep apnea (adult) (pediatric) CPAP use counseling Noncompliance with CPAP treatment Obesity (BMI 30-39.9) [facility] SEMAJ (obstructive sleep apnea)- Primary Obstructive sleep apnea (adult) (pediatric) CPAP use counseling Noncompliance with CPAP treatment Obesity (BMI 30-39.9) [facility] filedocumented in this encounter [facility] filedocument[facility] in this encounter [facility] on filedocumented in this encounter [facility] on filedocumented in this encounter [facility] Summary Purpose Family History No Family History Records FoundNo Family History Records FoundNo Family History Records FoundNo Family History Records FoundNo Family History Records Found Advance Directives No Advanced Directives Records FoundNo Advanced Directives Records FoundNo Advanced Directives Records FoundNo Advanced Directives Records FoundNo Advanced Directives Records Found Reason for Referral Specialty Diagnoses / Procedures [facility] Referred To Contact Diagnoses SEMAJ (obstructive sleep apnea) Procedures Home sleep study WilliamDaphnie, [employer] SALESPERSON-SENIOR LEAD DEVELOPER [address] [facility], [address] [address] Referral ID Status Reason Start Date Expiration Date V isits Requested Visits Authorized [id number] Pending Review 06/28/2023 06/27/2024 1 1 Specialty Diagnoses / Procedures Referred By Jonny gerber Referred To Contact Diagnoses SEMAJ (obstructive sleep apnea) Procedures PSG Diagnostic Daphnie Thomas, [employer] SALESPERSON-SENIOR LEAD DEVELOPER [address] [facility], [address] [address] Referral ID Status Reason Start Date Expiration Date V isits Requested Visits Authorized [id number] Pending Review 03/17/2023 03/16/2024 1 1 Additional Source Comments INFORMATION SOURCE (unrecogn ized section and content) DATE CREATED AUTHOR 06/26/2022 [facility] DATE CREATED AUTHOR AUTHOR'S ORGANIZ ATION 07/22/2023 [facility] DATE CREATED AUTHOR AUTHOR'S ORGANIZ ATION 10/15/2023 [facility] EPIC DATE CREATED AUTHOR AUTHOR'S ORGANIZ ATION 06/17/2024 [facility] DATE CREATED AUTHOR AUTHOR'S ORGANIZ ATION 06/29/2024 Alexis Menard [facility] Care Teams (unrecognized sec tion and content) Monitoring Specialist Relationship Specialty Start Date End Date Keerthi Zhao MD [address] [place] [id number] PCP - General [facility] 11/01/18 Monitoring Specialist Relationship Specialty Start Date End Date Keerthi Zhao MD [address] [place] [address] PCP - General [facility] 11/01/18 Monitoring Specialist Relationship Specialty Start Date End Date Keerthi Zhao MD [address] [place] [address] PCP - General [facility] 11/01/18 Monitoring Specialist Relationship Specialty Start Date End Date Keerthi Zhao MD [address] [place] [address] PCP - General [facility] 11/01/18 Monitoring Specialist Relationship Specialty Start Date End Date Keerthi Zhao MD PCP - General [facility] 11/01/18 Monitoring Specialist Relationship Specialty Start Date End Date Keerthi Zhao MD PCP - General Family Medicine 11/01/18 Monitoring Specialist Relationship Specialty Start Date End Date Keerthi Zhao MD PCP - General Family Medicine 11/01/18 Monitoring Specialist Relationship Specialty Start Date End Date Keerthi Zhao MD PCP - General Family Medicine 11/01/18 Monitoring Specialist Relationship Specialty Start Date End Date Keerthi Zhao MD PCP - General Family Medicine 11/01/18 Reason for Visit (unrecogniz ed section and content) Reason Onset Date Comments Sleep Lab 06/29/2023 Hst Order Reason Comments New Patient Sleep ConsultNo prio r sleep studyNot on PAP Specialty Diagnoses / Procedures Referred By Jonny t Referred To Contact Pulmonary Medicine Diagnoses Anxiety Keerthi Zhao MD [address] [place] [address] [facility] [address] [place] [address] Referral ID Status Reason Start Date Expiration Date Visits Requested Visits Authorized [id number] Pending Review Specialty Services Required 01/07/2023 01/07/2024 1 1 Reason Onset Date Comments Sleep Lab 03/22/2023 PSG Specialty Diagnoses / Procedures Referred By Contac t Referred To Contact Diagnoses SEMAJ (obstructive sleep apnea) Procedures Home sleep study Daphnie Thomas, [employer] SALESPERSON-SENIOR LEAD DEVELOPER [address] [facility], [address] [place] [address] Referral ID Status Reason Start Date Expiration Date Visits Re quested Visits Authorized [id number] Closed 06/28/2023 06/27/2024 1 1 Reason Comments Sleep Apnea DOWNLOAD PROVIDED DM E: ALEENA Reason Comments Sleep Apnea DME : Aleena FOR RECORDS PERTAINING TO PATIENTS WHO ARE OR HAVE BEEN ENROLLED IN A CHEMICAL DEPENDENCY/SUBSTANCEABUSE PROGRAM, SOME INFORMATION MAY BE OMITTED. This clinical summary was aggregated from multiple sources. Caution should be exercised in using it in the provision of clinical care. This summary normalizes information from multiple sources, and as a consequence, information in this document may materially change the coding, format and clinical context of patient data. In addition, data may be omitted in some cases. CLINICAL DECISIONS SHOULD BE BASED ON THE PRIMARY CLINICAL RECORDS. [employer] provides no warranty or guarantee of the accuracy or completeness of information in this document.
== END 2024-09-20 08:54 | disposition home or self-care (01) ==
LOC: MAMMO 08:53
PROVIDERS: Visit Provider Nurse Practitioner
DX: Z12.31 Encounter for screening mammogram for malignant neoplasm of breast (principal)
CPT/HCPCS: 77063; 77067